=== PATIENT | female | born 1945 | race Caucasian/White ===

== ENCOUNTER 2020-04-08 00:40 | Day surgery (SDC) | payer MEDICARE, SELFPAY ==
[2020-04-01 09:27] VITALS: BMI 34.9
[2020-04-08 12:01] VITALS: BP 149/81; PULSE 72; RESP 16; TEMP 36.6; O2SAT 99
[2020-04-08] MEDS: LACTATED RINGERS 1,000 ML 150 ML IV CONT (12:11)
--- NOTE | 2020-04-08 12:48 | WPDANESEPPF ---
Anes - Initial Pre Proc Eval Procedure: Operation Date: 04/08/20 13:30 Proposed Procedures p Screening Colonoscopy - Gentry Stover DO Date/Time: 04/08/20 12:48 Surgeon: Gentry Stover DO Pre Op Diagnosis: Neoplasm Screening Patient Data Age: 74 Gender: F Height: 5 ft 1 in Weight: 83.6 kg Last Vital Signs Temp 97.9 F 04/08/20 12:01 Pulse 72 04/08/20 12:01 Resp 16 04/08/20 12:01 BP 149/81 H 04/08/20 12:01 Pulse Ox 99 04/08/20 12:01 Allergies Allergy/AdvReac Type Severity Reaction Status Date / Time codeine Allergy Severe DIFFICULTY Verified 04/08/20 11:59 BREATHING ciprofloxacin Allergy Intermediate Itching Verified 04/08/20 11:59 Home Medications Medication Instructions Recorded Confirmed Type amlodipine 5 mg PO DAILY 04/01/20 04/01/20 History aspirin [Adult Aspirin] 81 mg PO DAILY 04/01/20 04/01/20 History cholecalciferol (vitamin D3) 125 mcg PO DAILY 04/01/20 04/01/20 History [Vitamin D3] cyanocobalamin (vitamin B-12) 2,000 mcg PO DAILY 04/01/20 04/01/20 History [Vitamin B-12] losartan-hydrochlorothiazide 1 tablet PO DAILY 04/01/20 04/01/20 History Patient hx anesthesia problems: none Family hx anesthesia problems: none PMFSH Past Medical History Medical History (Updated 04/08/20 @ 12:47 by Joss Pino MD) GERD (gastroesophageal reflux disease) Hypertension RONDA (obstructive sleep apnea) cannot tolerate CPAP Social History Social History Smoking status: Former smoker Alcohol intake: current Drinks per week: 5 Alcohol use details: WINE Substance use: never Substance use type: does not use Living arrangements: with family Spiritual care concerns: No Anes - Eval Final PreProcedure Day of Procedure 04/08/20 12:48 Patient weight: obese Heart: regular rate and rhythm Lungs: clear to auscultation Airway: Mallampati scale class II Neurological: alert and oriented Last oral intake: >/= 8 hours ASA classification: III Emergent: no Anesthetic plan: proceed Anesthesia type and monitoring: general GIVS and standard monitoring Informed Consent: The patient's anesthetic plan and its attendant risks and benefits were discussed with the patient/family/POA. Questions were solicited and answers provided to the satisfaction of the patient/family/POA.
--- NOTE | 2020-04-08 13:38 | P.HP_ITS ---
H&P: [facility] History of Present Illness Date/Time: 04/08/20 13:38 Chief complaint: Neoplasm Screening Narrative: Reason for visit colonoscopy. This very pleasant lady is being evaluated the request of the primary physician. Impression: Screening and surveillance colonoscopy. Patient's history adenomatous colon polyps. GERD well controlled on medication. HTN. RONDA. Obesity. Recommendation: Colonoscopy. History: This very pleasant lady's here for screening and surveillance colonoscopy. She has a history adenomatous colon polyps. She has history of reflux disease with well controlled on medication. A GI review systems is negative. Physical examination: General: very pleasant patient in no acute distress. HEENT: Head was normocephalic sclerae is clear mouth without masses neck was supple. Heart: Rate rhythm regular without S3 or S4. Lungs: CTA. Abdomen: Soft with no guarding or rigidity. Bowel sounds were active. Neurologic: Cranial nerves 2 through 12 intact. No focal defects. No clonus. Musculoskeletal system: Revealed no joint tenderness or swelling no muscle atrophy. Extremities: Reveal no significant edema. Skin: Warm and dry with normal turgor. Mental status: intact. Patient is alert and oriented. Review of Systems Review of Systems: All systems reviewed & are unremarkable except as noted in HPI and below PMFSH Past Medical History Medical History (Updated 04/08/20 @ 13:38 by Gentry Stover DO) Adenomatous colon polyp GERD (gastroesophageal reflux disease) Hypertension Obesity RONDA (obstructive sleep apnea) cannot tolerate CPAP Surgical History Surgical History (Updated 04/08/20 @ 13:38 by Gentry Stover DO) H/O colonoscopy H/O unilateral oophorectomy History of esophagogastroduodenoscopy (EGD) Hx laparoscopic cholecystectomy Social History Social History Smoking status: Former smoker Alcohol intake: current Drinks per week: 5 Alcohol use details: WINE Substance use: never Substance use type: does not use Living arrangements: with family Spiritual care concerns: No Meds Home Medications and Allergies Home Medications Medication Instructions Recorded Confirmed Type amlodipine 5 mg PO DAILY 04/01/20 04/01/20 History aspirin [Adult Aspirin] 81 mg PO DAILY 04/01/20 04/01/20 History cholecalciferol (vitamin D3) 125 mcg PO DAILY 04/01/20 04/01/20 History [Vitamin D3] cyanocobalamin (vitamin B-12) 2,000 mcg PO DAILY 04/01/20 04/01/20 History [Vitamin B-12] losartan-hydrochlorothiazide 1 tablet PO DAILY 04/01/20 04/01/20 History Allergies Allergy/AdvReac Type Severity Reaction Status Date / Time codeine Allergy Severe DIFFICULTY Verified 04/08/20 11:59 BREATHING ciprofloxacin Allergy Intermediate Itching Verified 04/08/20 11:59 Vital Signs Vital Signs - 24 hr 04/08/20 12:01 Temperature 36.6 C Pulse Rate 72 Respiratory Rate 16 Blood Pressure 149/81 H Pulse Oximetry 99
[2020-04-08 14:14] VITALS: BP 116/59; PULSE 72; RESP 21; O2SAT 97
[2020-04-08 14:24] VITALS: BP 140/72; PULSE 62; RESP 19; O2SAT 100
[2020-04-08 14:34] VITALS: BP 145/58; PULSE 62; RESP 22; O2SAT 99
== END 2020-04-08 14:47 | disposition home or self-care (01) ==
PROVIDERS: PCP Internal Medicine; Visit Provider Internal Medicine Gastroenterology
PROC: 0DJD8ZZ Inspection of Lower Intestinal Tract, Via Natural or Artificial Opening Endoscopic (ICD-10-PCS; CPT 45378; principal; 2020-04-08 13:30)
DX: Z12.11 Encounter for screening for malignant neoplasm of colon (principal); D12.4 Benign neoplasm of descending colon; D12.3 Benign neoplasm of transverse colon; D12.2 Benign neoplasm of ascending colon; D12.8 Benign neoplasm of rectum; K63.5 Polyp of colon; K62.1 Rectal polyp; K21.9 Gastro-esophageal reflux disease without esophagitis; I10 Essential (primary) hypertension; G47.33 Obstructive sleep apnea (adult) (pediatric); E66.9 Obesity, unspecified; Z90.49 Acquired absence of other specified parts of digestive tract; Z90.721 Acquired absence of ovaries, unilateral; Z87.891 Personal history of nicotine dependence
CPT/HCPCS: 45385; 45380; 88305; J2001; J2704; J7120

== ENCOUNTER → 2020-04-16 17:51 | Outpatient (CLI) | payer MEDICARE, SELFPAY ==
--- NOTE | ~2020-04-16 | MM_ITS ---
EXAMINATION: MM screening [facility] BI w meenakshi HISTORY: Screening TECHNIQUE: Craniocaudal and mediolateral oblique 3-D tomosynthesis images were obtained and synthetic 2-D images were generated. CAD analysis was submitted and interpreted. COMPARISON: Comparison to multiple prior studies sequentially, with oldest reviewed study dated 02/08. BREAST PARENCHYMAL COMPOSITION: There are scattered areas of fibroglandular density. FINDINGS: There is no evidence of suspicious mass, calcification, or architectural distortion to sugg est malignancy in either breast. There has been no suspicious interval change. IMPRESSION: 1. No mammographic evidence of malignancy. 2. Recommend routine screening mammography in one year. BI-RADS Category 1: Negative Reviewed, dictated and finalized at location A. LEX OPERATOR
--- NOTE | ~2020-04-16 | DEXA_ITS ---
Bone Density Report Name: Tequila Kelly Age: 74 Sex: Female Ethnicity: White Date of : 1945 Indication: postmenopausal; screening for osteoporosis; height loss; Referring Provider: MAURICE, MELLISSA Vizcarra Study: Bone densitometry was performed. Exam Date: April 16, 2020 Accession number: [id number] Bone Density: Region BMD T-score Z-score Classification AP Spine (L1-L4) 0.830 -2.0 0.3 Osteopenia Femoral Neck (Left) 0.650 -1.8 0.1 Osteopenia Total Hip (Left) 0.860 -0.7 1.0 Normal Femoral Neck (Right) 0.692 -1.4 0.5 Osteopenia Total Hip (Right) 0.883 -0.5 1.2 Normal Total Hip Mean 0.872 -0.6 1.1 Normal World Health Organization criteria for BMD impression classify patients as: Normal (T-score at or above -1.0), Osteopenia (T-score between -1.0 and -2.5), or Osteoporosis (T-score at or below -2.5). 10-year Fracture Risk(1): Major Osteoporotic Fracture 10% Hip Fracture 1.9% Reported Risk Factors: [place] (), Neck BMD=0.650, BMI=34.5 (1) FRAX(R) Version 3.08. Fracture probability calculated for an untreated patient. Fracture probability may be lower if the patient has received treatment. Clinical Information Provided by Patient: Has used the following medications: Vitamin D Patient maximum height was 62.0 Menopause Age: 44 No regular weight bearing exercise Does not regularly consume dairy products Drinks caffeinated beverages Onset of menses at age 15 Number of children 3 Impression: The patient has low bone mass, based on the Total Spine T-score. The patient has an estimated ten-year risk of hip fracture of 1.9% and an estimated ten-year risk of major fracture of 10%, based on the WHO FRAX algorithm. Discussion: BONE DENSITY IS LOW AT ONE OR MORE SKELETAL SITES. This patient's lowest T-score is low at one or more skeletal sites. It meets the World Health Organization's (WHO) criteria for ?low bone mass? (T-score between -1.0 and -2.5). The patient's 10-year risk of fracture as calculated by FRAX is less than the threshold where pharmacological therapy is recommended by the National Osteoporosis Foundation (NOF). However, all treatment decisions require clinical judgment and consideration of individual patient factors, including patient preferences, comorbidities, previous drug use, risk factors not captured in the FRAX model (e.g., frailty, falls, vitamin D deficiency, increased bone turnover, interval significant decline in bone density) and possible under or overestimation of fracture risk by FRAX. The patient should follow a healthful lifestyle (good nutrition with adequate calcium and vitamin D, and appropriate weight-bearing exercise). Follow-Up: Consider repeating this study in 2 to 3 years to reassess this patient's status, or sooner if there is some new clinical
== END ==
PROVIDERS: PCP Internal Medicine; Visit Provider Internal Medicine
DX: Z12.31 Encounter for screening mammogram for malignant neoplasm of breast (principal); Z13.820 Encounter for screening for osteoporosis; Z78.0 Asymptomatic menopausal state; M85.852 Other specified disorders of bone density and structure, left thigh; M85.851 Other specified disorders of bone density and structure, right thigh
CPT/HCPCS: 77063; 77067; 77080

== ENCOUNTER → 2021-05-14 13:22 | Outpatient (CLI) | payer MEDICARE, SELFPAY ==
--- NOTE | ~2021-05-14 | MM_ITS ---
EXAMINATION: MM screening [facility] BI w meenakshi HISTORY: Screening mammogram TECHNIQUE: Craniocaudal and mediolateral oblique 3-D tomosynthesis images were obtained and synthetic 2-D images were generated. CAD analysis was submitted and interpreted. COMPARISON: 04/16/2020, 03/27/2019, 03/21/2018 BREAST PARENCHYMAL COMPOSITION: There are scattered areas of fibroglandular density. FINDINGS: There is no evidence of suspicious mass, calcification, or architectural distortion to sugg est malignancy in either breast. There has been no suspicious interval change. IMPRESSION: 1. No mammographic evidence of malignancy. 2. Recommend routine screening mammography in one year. BI-RADS Category 1: Negative Reviewed, dictated and finalized at location A. ON MACHINE OPERATOR
== END ==
PROVIDERS: PCP Internal Medicine; Visit Provider Internal Medicine
DX: Z12.31 Encounter for screening mammogram for malignant neoplasm of breast (principal)
CPT/HCPCS: 77063; 77067

== ENCOUNTER 2021-07-12 16:58 | Emergency (ER) | payer MEDICARE, SELFPAY ==
--- NOTE | ~2021-07-12 | XR_ITS ---
EXAMINATION: XR chest 2V 07/12/2021 17:34 INDICATION: Hypertension. Heart murmur. Weakness. PROCEDURE: 2 view chest COMPARISON: No prior studies for comparison. FINDINGS: The lungs are clear. The cardiomediastinal silhouette is within normal limits. There are no pleural effusions. There is no pneumothorax suspected. There is a large hiatal hernia. IMPRESSION: 1: NO ACUTE CARDIOPULMONARY DISEASE. Reviewed, dictated and finalized at location A. NDS MAINTENANCE WORKER
--- NOTE | ~2021-07-12 | XR_ITS ---
XR shoulder LT min 2V 07/12/2021 17:34 Indication: Left shoulder pain. No injury. Procedure: 4 views left shoulder Comparison: No prior studies for comparison. Findings: There is glenohumeral joint osteoarthritis. No fracture, subluxation or dislocation. Visual ized lung parenchyma and surrounding soft tissues are unremarkable. Impression: 1: Left glenohumeral joint osteoarthritis. Reviewed, dictated and finalized at location A. R AND SANDER Impression: 1: Left glenohumeral joint osteoarthritis.
[2021-07-12 17:03] VITALS: BP 176/93; PULSE 106; RESP 20; TEMP 36.9; O2SAT 98
--- NOTE | 2021-07-12 17:09 | ECG_ITS ---
Measurements Intervals [place] Rate: 102 P: 16 SC: 163 QRS: 6 QRSD: 94 T: 33 QT: 337 QTc: 439 Interpretive Statements SINUS TACHYCARDIA MINIMAL VOLTAGE CRITERIA FOR LVH, CONSIDER NORMAL VARIANT [MEETS CRITERIA IN ONE OF: R(aVL), S(V1), R(V5), R(V5/V6)+S(V1)] WANDERING BASELINE ARTIFACT V4 THROUGH V6 NONSPECIFIC ST & T-WAVE ABNORMALITY ABNORMAL ECG NO PREVIOUS ECG AVAILABLE FOR COMPARISON Electronically Signed On 07-13-2021 10:58:50 CORRUGATED BOX MACHINE OPERATOR by Geovanni Schmid M.D.
[2021-07-12 17:22] LABS: Basophils Percent Auto 0.1 % (0.2-1.2); Eosinophils Absolute Auto 0.1 K/mm3 (0-0.3); Eosinophils Percent Auto 0.7 % (0-4.4); Hematocrit 41.8 % (37.0-47.0); Hemoglobin 13.3 g/dL (12.0-15.0); Immature Granulocyte Absolute 0.04 K/mm3 (0.00-0.031); Immature Granulocyte Percent A 0.4 % (0-0.5); Lymphocytes Absolute Auto 2.39 K/mm3 (0.9-3.2); Lymphocytes Percent Auto 23.4 % (18.3-44.2); Mean Corpuscular HGB Conc 31.8 g/dl (32-36); Mean Corpuscular Hemoglobin 29.6 pg (26-34); Mean Corpuscular Volume 93.1 fl (80-100); Mean Platelet Volume 9.8 fl (7.4-10.4); Monocytes Absolute Auto 0.7 K/mm3 (0.1-0.6); Monocytes Percent Auto 7.2 % (2.6-8.5); Neutrophils Percent Auto 68.2 % (45.5-73.1); Platelet Count Result 285 k/mm3 (150-375); Red Blood Count 4.49 M/mm3 (4.2-5.4); Red Cell Distribution Width 13.6 % (11.5-14.5); White Blood Count 10.2 K/mm3 (4.5-10.0)
--- NOTE | 2021-07-12 17:24 | ED_ITS ---
07/12/21 17:14 07/12/21 17:15 Labs: Lab Results 07/12/21 07/12/21 07/12/21 Range/Units 17:14 17:15 17:15 WBC 10.2 H (4.5-10.0) K/mm3 RBC 4.49 (4.2-5.4) M/mm3 Hgb 13.3 (12.0-15.0) g/dL Hct 41.8 (37.0-47.0) % MCV 93.1 (80-100) fl MCH 29.6 (26-34) pg MCHC 31.8 L (32-36) g/dl RDW 13.6 (11.5-14.5) % Plt Count 285 (150-375) k/mm3 MPV 9.8 (7.4-10.4) fl Immature Gran % (Auto) 0.4 (0-0.5) % Neut % (Auto) 68.2 (45.5-73.1) % Lymph % (Auto) 23.4 (18.3-44.2) % [place] % (Auto) 7.2 (2.6-8.5) % Eos % (Auto) 0.7 (0-4.4) % Baso % (Auto) 0.1 L (0.2-1.2) % Lymph # (Auto) 2.39 (0.9-3.2) K/mm3 [place] # (Auto) 0.7 H (0.1-0.6) K/mm3 Eos # (Auto) 0.1 (0-0.3) K/mm3 Baso # (Auto) 0.0 (0.0-0.1) K/mm3 Abs Immat Gran (auto) 0.04 H (0.00-0.031) K/mm3 Absolute Neuts (auto) 7.0 H (1.3-6.7) K/mm3 Absolute Nucleated RBC 0.0 (0.0-0.012) K/mm3 Nucleated RBC % 0.0 (0.0-0.2) % PT 13.1 (11.1-14.7) Seconds INR 1.0 APTT 26.5 (22.3-36.8) SECONDS D-Dimer 0.64 H (<0.48) ug/mL Sodium 139 (137-145) mmol/L Potassium 3.5 (3.4-5.0) mmol/L Chloride 102 (98-107) mmol/L Carbon Dioxide 27 (22-30) mmol/L Anion Gap 10 (8-16) mmol/L BUN 13 (7-17) mg/dL Creatinine 0.60 L (0.7-1.0) mg/dL Estim Creat Clear Calc 74 ml/min Estimated GFR > 60 (59 - ) Glucose 148 H (65-110) mg/dL Calcium 9.6 (8.4-10.2) mg/dL Total Bilirubin 0.5 (0.2-1.3) mg/dL AST 24 (14-36) U/L ALT 18 (4-35) U/L Alkaline Phosphatase 92 (38-126) U/L Troponin I (0.000-0.034) ng/mL Total Protein 7.0 (6.3-8.2) g/dL Albumin 4.4 (3.5-5.1) g/dL Lipase 45 (23-300) U/L Urine Color (Yellow) Urine Appearance (Clear) Urine pH (5.0-9.0) Ur Specific Model (1.001-1.035) Urine Protein (Negative) mg/dL Urine Glucose (UA) (Negative) mg/dL Urine Ketones (Negative) mg/dL Ur Blood (Man) (Negative) Urine Nitrate (Negative) Urine Bilirubin (Negative) Urine Urobilinogen (<2.0) mg/dL Leukocyte Esterase Rfl (Negative) RODNEY/UL Urine RBC (0-2) /hpf Urine WBC /hpf Ur Squamous Epith Cells (Few) /hpf Urine Bacteria /hpf Urine Mucus /lpf 07/12/21 07/12/21 Range/Units 17:15 18:23 WBC (4.5-10.0) K/mm3 RBC (4.2-5.4) M/mm3 Hgb (12.0-15.0) g/dL Hct (37.0-47.0) % MCV (80-100) fl MCH (26-34) pg MCHC (32-36) g/dl RDW (11.5-14.5) % Plt Count (150-375) k/mm3 MPV (7.4-10.4) fl Immature Gran % (Auto) (0-0.5) % Neut % (Auto) (45.5-73.1) % Lymph % (Auto) (18.3-44.2) % [place] % (Auto) (2.6-8.5) % Eos % (Auto) (0-4.4) % Baso % (Auto) (0.2-1.2) % Lymph # (Auto) (0.9-3.2) K/mm3
--- NOTE | 2021-07-12 17:24 | ED.EXTPRO ---
HPI - Extremity Problem General Chief complaint: Extremity Problem,Nontraumatic Stated complaint: L shoulder pain, abnormal ekg Time Seen by Provider: 07/12/21 17:01 Source: patient History of Present Illness HPI Narrative: Patient was referred from urgent care for arm pain. Reports she has had arm pain for the past couple days it is primarily in her shoulder is worse with moving her shoulder. Pain is achy, constant, radiates down the arm. She denies any trauma or injury to the area. Reports the urgent care did an EKG that was abnormal and she was referred to the ER for further evaluation. She denies any chest pain or shortness of breath she denies any nausea vomiting or diaphoresis. Denies any lightheadedness or dizziness Related Data Home Medications Medication Instructions Recorded Confirmed amlodipine 5 mg PO DAILY 04/01/20 04/01/20 aspirin [Adult Aspirin] 81 mg PO DAILY 04/01/20 04/01/20 cholecalciferol (vitamin D3) 125 mcg PO DAILY 04/01/20 04/01/20 [Vitamin D3] cyanocobalamin (vitamin B-12) 2,000 mcg PO DAILY 04/01/20 04/01/20 [Vitamin B-12] losartan-hydrochlorothiazide 1 tablet PO DAILY 04/01/20 04/01/20 Allergies Allergy/AdvReac Type Severity Reaction Status Date / Time codeine Allergy Severe DIFFICULTY Verified 07/12/21 17:11 BREATHING ciprofloxacin Allergy Intermediate Itching Verified 07/12/21 17:11 Review of Systems Review of Systems: CONSTITUTIONAL: Denies fever, chills, or sweats. EYES: Denies visual changes, redness, or discharge. ENT: Denies rhinorrhea, congestion, sore throat, or otalgia. CARDIOVASCULAR: Denies chest pain, palpitations, or edema. RESPIRATORY: Denies cough or dyspnea. GASTROINTESTINAL: Denies abdominal pain, nausea, vomiting, or diarrhea. GENITOURINARY: Denies dysuria or hematuria. SKIN: Denies rash or itching. MUSCULOSKELETAL: Denies back pain, or myalgia. NEUROLOGIC: Denies headache, numbness, dizziness, or weakness. PSYCHIATRIC: Denies anxiety or depression. All systems reviewed & are unremarkable except as noted in HPI and below PMFSH Past Medical History Medical History Adenomatous colon polyp Diverticula, colon GERD (gastroesophageal reflux disease) Hypertension Obesity RONDA (obstructive sleep apnea) cannot tolerate CPAP Surgical History Surgical History H/O colonoscopy H/O unilateral oophorectomy History of esophagogastroduodenoscopy (EGD) Hx laparoscopic cholecystectomy Social History Social History Smoking status: Former smoker Alcohol intake: current Drinks per week: 5 Alcohol use details: WINE Substance use: never Substance use type: does not use Spiritual care concerns: No Exam Narrative: GENERAL: Well-appearing, well-nourished, and in no acute distress. HEAD: Normocephalic, atraumatic. EYES: PERRLA and EOMI. ENT: Nares clear, no rhinorrhea or epistaxis. Mucous membranes moist. NECK: Supple. No masses. No JVD CHEST: Clear to auscultation. No respiratory distress. No wheezes rales or rhonchi HEART: Regular rate and rhythm. No murmur heard. Normal peripheral pulses. ABDOMEN: Soft, nontender, nondistended, normal active bowel sounds. EXTREMITIES: Limited range of motion to the left shoulder due to pain there is diffuse tenderness to the left shoulder is also tenderness to the left paraspinal area in the T-spine along the rhomboid muscles SKIN: Warm, dry, no rash. NEURO: No focal deficits. Alert and oriented x3. PSYCH: Normal mood and affect. Course Reevaluation(s) Reevaluation #1: Patient feels somewhat improved results thus far reviewed with patient. Patient is comfortable with trial of outpatient supportive therapies. Date: 07/12/21 Time: 18:28 Vital Signs Vital signs: Vital Signs Temperature 36.9 C 07/12/21 17:03 Pulse Rate 106 H 07/12/21 17:03 Re
[2021-07-12 17:30] LABS: Prothrombin Time 13.1 Seconds (11.1-14.7)
[2021-07-12 17:31] LABS: Partial Thromboplastin Time 26.5 SECONDS (22.3-36.8)
[2021-07-12] MEDS: KETOROLAC 15 MG/ML VIAL (*BKC) IV PUSH (17:33)
[2021-07-12 17:34] LABS: D Dimer 0.64 ug/mL (<0.48)
[2021-07-12 17:35] LABS: Alanine Aminotransferase 18 U/L (4-35); Albumin Level 4.4 g/dL (3.5-5.1); Alkaline Phosphatase 92 U/L (38-126); Anion Gap 10 mmol/L (8-16); Aspartate Amino Transferase 24 U/L (14-36); Bilirubin,Total 0.5 mg/dL (0.2-1.3); Blood Urea Nitrogen 13 mg/dL (7-17); Calcium 9.6 mg/dL (8.4-10.2); Carbon Dioxide 27 mmol/L (22-30); Chloride 102 mmol/L (98-107); Estimated CRCL calculation 74 ml/min; Estimated Glomerular Filt Rate > 60; Glucose 148 mg/dL (65-110); Lipase 45 U/L (23-300); Potassium 3.5 mmol/L (3.4-5.0); Sodium 139 mmol/L (137-145)
[2021-07-12 17:44] LABS: Troponin I < 0.012 ng/mL (0.000-0.034)
[2021-07-12 18:10] VITALS: BP 152/75; PULSE 84; RESP 18; O2SAT 99
[2021-07-12 18:34] VITALS: BP 147/68; PULSE 83; RESP 19; TEMP 37.1; O2SAT 99
[2021-07-12 18:36] LABS: Add Urine Microscopic? YES; Appearance Urine Cloudy (Clear); Bacteria Urine Trace /hpf; Bilirubin Urine Negative (Negative); Blood Urine Negative (Negative); Color Urine Yellow (Yellow); Glucose Urine UA Negative (Negative); Ketones Urine Trace mg/dL (Negative); Leukocyte Esterase Ur Trace LEU/UL (Negative); Mucus Urine Few /lpf; Nitrate Urine Negative (Negative); Protein Urine Negative (Negative); Specific Grav Ur 1.023 (1.001-1.035); Squamous Epithelial Cell Urine Many /hpf (Few)
[2021-07-12 19:40] VITALS: BP 141/65; PULSE 75; RESP 16; TEMP 37; O2SAT 99
== END 2021-07-12 19:43 | disposition home or self-care (01) ==
PROVIDERS: Emergency Provider Emergency Medicine; PCP Internal Medicine
DX: M25.512 Pain in left shoulder (principal); I10 Essential (primary) hypertension; G47.33 Obstructive sleep apnea (adult) (pediatric); K21.9 Gastro-esophageal reflux disease without esophagitis; E66.9 Obesity, unspecified; Z68.39 Body mass index [BMI] 39.0-39.9, adult; Z87.891 Personal history of nicotine dependence; Z86.010 Personal history of colon polyps; Z79.82 Long term (current) use of aspirin; M19.012 Primary osteoarthritis, left shoulder; R00.0 Tachycardia, unspecified; R94.31 Abnormal electrocardiogram [ECG] [EKG]
CPT/HCPCS: 36415; 71046; 73030; 80053; 81001; 83690; 84484; 85025; 85380; 85610; 85730; 87077; 87086; 87088; 93005; 96374; 99284; J1885

== ENCOUNTER 2022-02-16 09:32 | Emergency (ER) | payer MEDICARE, SELFPAY ==
[2022-02-16 09:40] VITALS: BP 154/70; PULSE 89; RESP 20; TEMP 36.3; O2SAT 100
[2022-02-16] MEDS: diphenhydrAMINE HCl CAP 25 MG CAPSULE 50 MG PO (10:23)
[2022-02-16] MEDS: FAMOTIDINE 20 MG TABLET PO (10:23)
[2022-02-16] MEDS: methylPREDNISolone SOD SUCC 125 MG VIAL IM (10:23)
--- NOTE | 2022-02-16 10:33 | ED.ALLEREA ---
HPI - Allergic Reaction General Chief complaint: Allergic Reaction Stated complaint: RASH AFTER STARTING FUROSEMIDE Time Seen by Provider: 02/16/22 09:58 Source: patient Mode of arrival: ambulatory Limitations: no limitations History of Present Illness HPI narrative: Patient is a 76 y/o female who presents to the ED with c/o urticaria. Patient reports she started Lasix on Wednesday and Wednesday due to recent swelling/dependent edema in her left lower extremity. The swelling has improved. Patient then woke up Wednesday morning with an itchy rash/hives to her neck, left upper back, arms, abdomen. Denies any pain, but does report pruritus. She took Benadryl yesterday. Did not take the Lasix yesterday. States hives became worse today which prompted her presentation. She has not contacted her PCP. She does feel like her face looks somewhat swollen, but denies swelling of tongue, lip, throat, hoarseness, chest pain, SOB, abdominal pain, nausea, vomiting. Related Data Home Medications Medication Instructions Recorded Confirmed amlodipine 5 mg tablet 5 mg PO DAILY 04/01/20 04/01/20 aspirin 81 mg chewable tablet 81 mg PO DAILY 04/01/20 04/01/20 cholecalciferol (vitamin D3) 125 125 mcg PO DAILY 04/01/20 04/01/20 mcg (5,000 unit) tablet (Vitamin D3) cyanocobalamin (vitamin B-12) 2,000 mcg PO DAILY 04/01/20 04/01/20 2,000 mcg tablet,extended release (Vitamin B-12 ER) losartan 100 1 tablet PO DAILY 04/01/20 04/01/20 mg-hydrochlorothiazide 12.5 mg tablet Allergies Allergy/AdvReac Type Severity Reaction Status Date / Time codeine Allergy Severe DIFFICULTY Verified 07/12/21 17:11 BREATHING ciprofloxacin Allergy Intermediate Itching Verified 07/12/21 17:11 Review of Systems Review of Systems: CONSTITUTIONAL: Denies fever, chills, or sweats. ENT: Reports swelling of face. Denies hoarseness, swelling of tongue/throat/lips, rhinorrhea, congestion, sore throat, or otalgia. CARDIOVASCULAR: Denies chest pain. RESPIRATORY: Denies cough, SOB. GASTROINTESTINAL: Denies abdominal pain, nausea, vomiting, or diarrhea. SKIN: Reports rash and itching. All systems reviewed & are unremarkable except as noted in HPI and below PMFSH Past Medical History Medical History Adenomatous colon polyp Diverticula, colon GERD (gastroesophageal reflux disease) Hypertension Obesity RONDA (obstructive sleep apnea) cannot tolerate CPAP Surgical History Surgical History H/O colonoscopy H/O unilateral oophorectomy History of esophagogastroduodenoscopy (EGD) Hx laparoscopic cholecystectomy Social History Social History Smoking status: Former smoker Alcohol intake: current Drinks per week: 5 Alcohol use details: WINE Substance use: never Substance use type: does not use Spiritual care concerns: No Exam Narrative: GENERAL: Well appearing, obese, non-toxic, in no acute distress. HEAD: Normocephalic, atraumatic. EYES: PERRL/EOMI, conjunctivae clear bilaterally. No periorbital swelling/redness. NOSE: Normal, no drainage. THROAT: Pharynx clear, no exudate. MMs moist. No swelling of tongue/lips/palate. No stridor. No hoarseness. NECK: Supple. No adenopathy, no masses. RESPIRATORY: Airway patent, respirations nonlabored. No distress. Clear to auscultation bilaterally, no rales, rhonchi, wheezing. CARDIOVASCULAR: Regular rate and rhythm without murmurs, rubs, or gallops. Peripheral pulses 2+ and equal bilaterally. ABDOMINAL: Soft, nontender, nondistended, no hepatosplenomegaly. Normoactive BS. MUSCULOSKELETAL: Moves all extremities. Strength/ROM intact without gross deformities or TTP. No edema of BLE. SKIN: Warm, dry. Localized raised erythematous circular lesions to L upper back, bilateral anterior neck, bilateral inner arms, L sided abdomen. No lesions to
[2022-02-16 11:47] LABS: Basophils Percent Auto 0.2 % (0.2-1.2); Eosinophils Absolute Auto 0.1 K/mm3 (0-0.3); Eosinophils Percent Auto 1.3 % (0-4.4); Hematocrit 43.5 % (37.0-47.0); Immature Granulocyte Absolute 0.03 K/mm3 (0.00-0.031); Immature Granulocyte Percent A 0.3 % (0-0.5); Lymphocytes Absolute Auto 1.76 K/mm3 (0.9-3.2); Lymphocytes Percent Auto 20.1 % (18.3-44.2); Mean Corpuscular HGB Conc 32.2 g/dl (32-36); Mean Corpuscular Volume 90.2 fl (80-100); Mean Platelet Volume 9.8 fl (7.4-10.4); Monocytes Absolute Auto 0.8 K/mm3 (0.1-0.6); Monocytes Percent Auto 8.8 % (2.6-8.5); Neutrophils Absolute Auto 6.1 K/mm3 (1.3-6.7); Neutrophils Percent Auto 69.3 % (45.5-73.1); Platelet Count Result 289 k/mm3 (150-375); Red Blood Count 4.82 M/mm3 (4.2-5.4); White Blood Count 8.8 K/mm3 (4.5-10.0)
[2022-02-16 11:58] LABS: Alanine Aminotransferase 21 U/L (6-35); Albumin Level 4.4 g/dL (3.5-5.1); Alkaline Phosphatase 119 U/L (38-126); Anion Gap 10 mmol/L (8-16); Aspartate Amino Transferase 22 U/L (14-36); Bilirubin,Total 0.5 mg/dL (0.2-1.3); Blood Urea Nitrogen 10 mg/dL (7-17); Calcium 9.2 mg/dL (8.4-10.2); Carbon Dioxide 31 mmol/L (22-30); Chloride 98 mmol/L (98-107); Estimated CRCL calculation 61 ml/min; Estimated Glomerular Filt Rate > 60; Glucose 105 mg/dL (65-110); Potassium 3.3 mmol/L (3.4-5.0); Sodium 139 mmol/L (137-145)
[2022-02-16] MEDS: POTASSIUM CHLORIDE 20 MEQ TABLET 40 MEQ PO (12:29)
== END 2022-02-16 12:37 | disposition home or self-care (01) ==
PROVIDERS: Physician Assistant; Emergency Provider Emergency Medicine; PCP Internal Medicine
DX: L50.0 Allergic urticaria (principal); T50.1X5A Adverse effect of loop [high-ceiling] diuretics, initial encounter; I10 Essential (primary) hypertension; G47.33 Obstructive sleep apnea (adult) (pediatric); K21.9 Gastro-esophageal reflux disease without esophagitis; E66.9 Obesity, unspecified; Z68.36 Body mass index [BMI] 36.0-36.9, adult; Z79.82 Long term (current) use of aspirin
CPT/HCPCS: 36415; 80053; 85025; 96372; 99283; A9270; J2930

== ENCOUNTER → 2022-06-29 09:50 | Outpatient (CLI) | payer MEDICARE, SELFPAY ==
--- NOTE | ~2022-06-29 | DEXA_ITS ---
Bone Density Report Name: JORGE MARSHALL Age: 76 Sex: Female Ethnicity: White Date of : 1945 Indication: osteopenia; height loss; prior fracture; postmenopausal Referring Provider: MAURICE, MELLISSA Vizcarra Study: Bone densitometry was performed. Exam Date: June 29, 2022 Accession number: [id number] Bone Density: Region BMD T-score Z-score Classification AP Spine (L1-L4) 0.882 -1.5 0.9 Osteopenia Femoral Neck (Left) 0.656 -1.7 0.3 Osteopenia Total Hip (Left) 0.841 -0.8 0.9 Normal Femoral Neck (Right) 0.671 -1.6 0.5 Osteopenia Total Hip (Right) 0.868 -0.6 1.1 Normal Total Hip Mean 0.855 -0.7 1.0 Normal World Health Organization criteria for BMD impression classify patients as: Normal (T-score at or above -1.0), Osteopenia (T-score between -1.0 and -2.5), or Osteoporosis (T-score at or below -2.5). 10-year Fracture Risk(1): Major Osteoporotic Fracture 16% Hip Fracture 3.1% Reported Risk Factors: [place] (), Neck BMD=0.656, BMI=37.5, previous fracture (1) FRAX(R) Version 3.08. Fracture probability calculated for an untreated patient. Fracture probability may be lower if the patient has received treatment. Previous Exams: Region Exam Age BMD T-score BMD Change BMD Change Date g/cm2 vs Baseline vs Previous AP Spine(L1-L4) 06/29/2022 76 0.882 -1.5 0.051* 0.051* 04/16/2020 74 0.830 -2.0 Total Hip(Left) 06/29/2022 76 0.841 -0.8 -0.019 -0.019 04/16/2020 74 0.860 -0.7 Total Hip(Right) 06/29/2022 76 0.868 -0.6 -0.016 -0.016 04/16/2020 74 0.883 -0.5 *Denotes significance at 95% confidence level, LSC for AP Spine = 0.022 g/cm2, LSC for Total Hip = 0.027 g/cm2 Clinical Information Provided by Patient: Has had a low trauma fracture Has used the following medications: Vitamin D Patient maximum height was 62.0 Menopause Age: 44 No regular weight bearing exercise Does not regularly consume dairy products Drinks caffeinated beverages Onset of menses at age 15 Number of children 3 Impression: The patient has low bone mass, based on the Left Femoral Neck T-score. The patient has an estimated ten-year risk of hip fracture of 3.1% and an estimated ten-year risk of major fracture of 16%, based on the WHO FRAX algorithm. The patient has risk factors, including: previous fracture. No significant bone loss was observed. Discussion: BONE DENSITY IS LOW AT ONE OR MOR
--- NOTE | ~2022-06-29 | MM_ITS ---
EXAMINATION: MM screening ian BI w meenakshi HISTORY: Screening mammogram TECHNIQUE: Craniocaudal and mediolateral oblique 3-D tomosynthesis images were obtained and synthetic 2-D images were generated. CAD analysis was submitted and interpreted. COMPARISON: 05/14/2021, 04/16/2020, 03/27/2019 bilateral screening mammogram examinations BREAST PARENCHYMAL COMPOSITION: There are scattered areas of fibroglandular density. FINDINGS: There is no evidence of suspicious mass, calcification, or architectural distortion to sugg est malignancy in either breast. There has been no suspicious interval change. IMPRESSION: 1. No mammographic evidence of malignancy. 2. Recommend routine screening mammography in one year. BI-RADS Category 1: Negative Reviewed, dictated and finalized at location A. ENING TECHNICIAN
== END ==
PROVIDERS: PCP Internal Medicine; Visit Provider Internal Medicine
DX: Z12.31 Encounter for screening mammogram for malignant neoplasm of breast (principal); Z78.0 Asymptomatic menopausal state; M85.89 Other specified disorders of bone density and structure, multiple sites
CPT/HCPCS: 77063; 77067; 77080

== ENCOUNTER 2023-12-18 10:30 | Outpatient (CLI) | payer MEDICARE, SELFPAY ==
--- NOTE | ~2023-12-18 | MM_ITS ---
EXAMINATION: MM screening ian BI w meenakshi HISTORY: Screening TECHNIQUE: Craniocaudal and mediolateral oblique 3-D tomosynthesis images were obtained and synthetic 2-D images were generated. CAD analysis was submitted and interpreted. COMPARISON: Comparison to multiple prior studies sequentially, with oldest reviewed study dated 02/07. BREAST PARENCHYMAL COMPOSITION: Not dense: There are scattered areas of fibroglandular density. FINDINGS: There is no evidence of suspicious mass, calcification, or architectural distortion to sugg est malignancy in either breast. There has been no suspicious interval change. IMPRESSION: 1. No mammographic evidence of malignancy. 2. Recommend routine screening mammography in one year. BI-RADS Category 1: Negative Reviewed, dictated and finalized at location B.
== END 2023-12-18 10:31 ==
PROVIDERS: PCP Internal Medicine; Visit Provider Internal Medicine
DX: Z12.31 Encounter for screening mammogram for malignant neoplasm of breast (principal)
CPT/HCPCS: 77063; 77067

== ENCOUNTER 2024-09-22 07:42 | Outpatient (CLI) | payer MEDICARE, SELFPAY ==
--- NOTE | ~2024-09-22 | CT_ITS ---
CT of the Abdomen: Indication: Abdominal pain Technique: 2.5 mm axial scans were obtained through the abdomen following intravenous administration of 100 cc of Omnipaque 350. Dose reduction technique was used on this scan by utilizing automated ex posure control and iterative reconstruction technique. The dose-length product (DLP) was 585.26 mGy-c m. Findings: Scans through the lung bases demonstrate 4 mm right middle lobe nodule. Large hiatal herni a present. The liver, spleen, pancreas, adrenals and kidneys are within normal limits. Cholecystectomy clips are present. There are atherosclerotic calcifications of the aorta. No lymphadenopathy. Visualized bowel loops are unremarkable. No ascites. There is minimal haziness in the central mesente ry. Impression: Large hiatal hernia. 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 4 mm right middle lobe nodule. Consider one-year follow-up exam for a high-risk patient. Reviewed, dictated and finalized at [facility]. Impression: Large hiatal hernia. 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 4 mm right middle lobe nodule. Consider one-year follow-up exam for a high-risk patient.
--- OUTSIDE RECORDS SUMMARY | 2024-09-22 07:46 | XMS_ITS | Clinical Summary ---
Author Organization [facility] Address [address] [place] [address] [address] [place] [address] Phone Care Team Providers Care Complex Case Manager Name Role Phone Gentry Stover Gio DO Unavailable [phone] Kelvin Velasquez MD Primary Care Provider [phone] Allergies Active Allergy Reactions Criticality Noted Date Comments Ciprofloxacin Unknown 07/15/2021 Codeine Shortness of Breath 03/27/2015 Medications amLODIPine (NORVASC) 5 MG Tablet every morning. 1 02/19/2015 Active DULoxetine (CYMBALTA) [address] Particles 0 03/06/2015 Active losartan-hydroch lorothiazide (HYZAAR) 100-12.5 MG Tablet every morning. 1 02/19/2015 Active Cholecalciferol (VITAMIN D PO) Take by mouth daily. Active FOLIC ACID PO Take by mouth daily. Active aspirin EC 81 MG Tablet Delayed Response Take 81 mg by mouth daily. Active Cyanocobalamin (VITAMIN B-12 PO) Take by mouth daily. Active celecoxib (CeleBREX) 100 MG Capsule Take 100 mg by mouth 2 times daily. Active Active Problems No known active problems Immunizations Immunization Administration Dates Next Due Covid-19, Mrna, Lnp-s, Pf, 30 Mcg/0.3 Ml Dose (P fizer) 07/12/2020,06/21/2020 Family History Medical History Relation Name Comments Cancer Father Lung Cancer Father Chronic Obstructive Pulmonary Disease Mother Heart Attack Mother Heart Disease Mother Hypertension Mother Relation Name Status Comments Father Mother Alive Social History Tobacco Use Types Packs/Day Years Used Date Smoking Tobacco: Former Cigarettes 1990 Smokeless Tobacco: Never Comments:3 cigs/day Alcohol Use Standard Drinks/Week Comments Yes 0 (1 standard drink = 0.6 oz pur e alcohol) Socially Comments No Sex and Gender Information Value Date Recorded Sex Assigned at Not on file Legal Sex Female 7:18 PM CDT Gender Identity Not on file Sexual Orientation Not on file Last Filed Vital Signs Vital Sign Reading Time Taken Comments Blood Pressure 158/72 07/28/2021 2:41 PM CDT Pulse 71 07/28/2021 2:41 PM CDT Temperature 36 C (96.8 F) 07/28/2021 2:41 PM CDT Respiratory Rate 20 07/28/2021 2:41 PM CDT Oxygen Saturation 100% 07/28/2021 2:41 PM CDT Inhaled Oxygen Concentration - - Weight 86.2 kg (190 lb) 07/28/2021 11:54 AM CDT Height 154.9 cm (5' 1 ) 07/28/2021 11:54 AM CDT Body Mass Index 35.9 07/28/2021 11:54 AM CDT Plan of Treatment Health Maintenance Due Date Last Done Comments Hepatitis C Virus (HCV) Screening 1945 TdaP Immunization 1945 Zoster Immunization (1 of 2) 11/28/1997 Respiratory Syncytial Virus (RSV) Immunization (Adult) (1 - 1-dose 75+ series) 11/28/2022 Influenza Immunization (#1) 01/09/202402/08, 02/14/2020, 03/13/2019, Additional history exists SARS-COV-2 Immunization ( season) 2024 03/05/2021, 07/19/2020, 07/12/2020, Additional history exists Pneumococcal Immunization (50+ years) Completed 08/11/2018, 03/08/2017 Pneumococcal Immunization Combined Discontinued 08/11/2018, 03/08/2017 Colonoscopy High Risk Discontinued 07/28/2021 , 04/08/2020, 02/14/2015 Colonoscopy Discontinued 07/28/2021, 03/12, 02/14/2015 Colorectal Cancer Screening Discontinued Cologuard Discontinued Hepatitis B Immunization Aged Out No longer eligible based on patient's age to complete this topic Immunochemical Fecal Occult Blood Discontinued Meningococcal Immunization (ACWY) Aged Out No longer eligible based on patient's age to complete this topic Rotavirus Immunization Aged Out No lo nger eligible based on patient's age to complete this topic Procedures Procedure Name Priority Date/Time Associated Diagnosis Comments COLONOSCOPY Routine 04/08/2020 from Last 3 Months or Most Recently Relevant to Health Maintenance Results * COLONOSCOPY (04/08/2020) Gentry Stover DO PROCEDURE/MINOR SURGICAL ORDERA BLES Final Result from Last 3 Months or Most Recently Relevant to Health Maintenance Insurance MEDICARE C [employer] on file Care Teams Complex Case Manager Relationship Specialty Start Date End Date Kelvin Velasquez MD PCP - General Internal Medicine 03/15/18 Gentry Stover DO Gastroenterology 03/28/15
--- OUTSIDE RECORDS SUMMARY | 2024-09-22 07:46 | XMS_ITS | Data Portability ---
Author Organization [place] [facility] [employer], Main Office Address [address] [place] [address] Care Team Providers Care Clinical Geneticist Name Role Phone MELLISSA RICHARDS Primary Care Provider [phone] MELLISSA RICHARDS Referring Provider [phone] Assessment No assessment recorded. Plan of Treatment Reminders Order Date Submit Date Provider Last Modified By Organization Details Last Modified Time Details Appointments Any 15 2024 08:15A Rigoberto Richards MD Not available Not available Not available Lab vitamin D, 25-hydrox y, total, serum 2023 [facility] (Lab), [address] [place], [address], 10/13/2023 21:25:40 lipid panel, serum 2023 024 [facility] (Lab), [address] [place], [address], 10/13/2023 21:25:40 CMP, serum or plasma 2023 024 [facility] (Lab), [address] [place], [address], 10/13/2023 21:11:49 lipid panel, serum 2023 024 [facility] (Lab), [address] [place], [address], 10/13/2023 21:11:53 vitamin D, 25-hydrox y, total, serum 2022 023 [facility] (Lab), [address] [place], [address], 11/26/2022 23:24:48 CMP, serum or plasma 2022 023 [facility] (Lab), [address] [place], [address], 11/26/2022 20:45:06 lipid panel, serum 2022 023 [facility] (Lab), [address] [place], [address], 11/26/2022 20:45:10 Referral EGD referral - Please call patient to schedule an appointme nt. Thank you. 2024 025 [email or web address] Gautam quinones MD, [address], [address], [place], [address], 08/01/2024 14:19:46 Procedures None recorded. Surgeries None recorded. Imaging MAMMO, screening , bilateral - no auth required 2023 024 [email or web address] 2 [facility], [address], [address], [place], [address], 10/27/2023 08:33:42 Medication Orders sertralin e 50 mg tablet [address] [facility] #[id number], [address], [place], [place], [id number], 08/01/2024 09:51:37 sertralin e 50 mg tablet [address] [facility] #[id number], [address], [place], [place], [id number], 11/17/2023 09:50:46 citalopra m 20 mg tablet 2023 024 [facility] #18431, [address], [place], [place], [id number], 08/01/2024 09:42:01 duloxetin e 20 mg capsule,d elayed release 2022 023 [email or web address] [facility] #20010, [address], [place], [place], [id number], 10/13/2023 09:15:12 Patient TargetsNo targets recorded. Patient Instructions Encounter Date Encounter Id Patient Instructions Last Modified By Organization Details Last Modified Time 10/13/2023 [id number] dementia rating scale-2* Not available 10/13/2023 12:00:04 alcohol misuse* Not available 10/13/2023 12:00:04 depression screening* Not available 10/13/2023 12:00:04 multi-dimensiona l health assessment questionnaire* [email or web address] Not available 10/13/2023 12:00:04 Personalized Hea lth Plan and Screening Recommendations Advance Directives - Do you have one? Yes Advance Directives - Do we have your advance directive on file in your health record? No, please bring in a copy at your earliest convenience Primary Prevention/Interven tion (prevents or decreases the chance of common diseases from occurring) Smoking Risk: Non Smoker Alcohol Misuse Screening: Negative Weight: Appropriate Overwei ght continue your current weight loss efforts try to lose 5% of your body weight try to lose 10% of your body weight Physical activity: Need more exercise/physical activity Nutrition: Good Average Fall Risk (screened today): Low Vaccines Pneumococcal: Ordered Recommended today Recommended today, but you have declined No further needed Influenza: Your next one in the fall of this year Chronic Disease Risks Stroke: Low Risk I have no recommendations Act israel diagnosis, Continue current treatment plan Heart Attack: Low risk I have no recommendations Clogging of the Arteries: Low risk I have no recommendations Diabetes: Low Risk I have no recommendations Secondary Prevention/Interven tion (detects treatable diseases before they may cause symptoms, disability, or ) Breast Cancer Screening with mammogram: Your next mammogram: Ordered Recommended today Cervical/Uterine/Ov elvis Cancer Screening: No screening necessary Osteoporosis Screening: Date Screening Last Performed: Colon Cancer Screening: Colonoscopy Date Screening Last Performed: __2021____ Eye Disease Screening: Dementia Risk: Low I have no recommendations Depression Screening: Negative Active diagnosis, Continue current treatment plan [email or web address] Not available 10/13/2023 10:00:18 Reason for Referral EGD Referral for Dysphagia Please call patient to schedule an appointment. Thank you. Referring Physician: Mellissa Richards, Internal Medicine, Encounter Date: 08/01/2024 Results Created Date Observation Date Name Description Value Unit Range Abnormal Flag Note LastModifiedBy Organization Detail LastModifiedTime 11/27/1911/26/2022 VITAM IN D 25-HY DROXY vd25oh 90.5 NG/mL 30-100 Vitam in D Statu s: Defic ient: <20 ng/mL Insuf ficie nt: 20-29 ng/mL Suffi cient : 30-10 0 ng/mL Not Available [facility] (Lab) [address] [place], [address], 11/26/2022 20:43:22 11/27/19 23 11/26/2022 COMPR EHENS ISRAEL METAB OLIC PANEL sodium 140 mmol/ L 137-14 5 Not Available [facility] (Lab) [address] [place], [address], 11/26/2022 20:45:05 11/27/19 23 11/26/2022 COMPR EHENS ISRAEL METAB OLIC PANEL potassium 4.4 mmol/ L 3.5-5. 1 Not Available [facility] (Lab) [address] [place], [address], 11/26/2022 20:45:05 11/27/19 23 11/26/2022 COMPR EHENS ISRAEL METAB OLIC PANEL chloride 101 mmol/ L 98-107 Not Available [facility] (Lab) [address] [place], [address], 11/26/2022 20:45:05 11/27/19 23 11/26/2022 COMPR EHENS ISRAEL METAB OLIC PANEL carbon dioxide 28 mmol/ L 22-30 Not Available [facility] (Lab) [address] [place], [address], 11/26/2022 20:45:05 11/27/19 23 11/26/2022 COMPR EHENS ISRAEL METAB OLIC PANEL anion gap 15.4 mmol/ L 14-22 Not Available [facility] (Lab) [address] [place], [address], 11/26/2022 20:45:05 11/27/19 23 11/26/2022 COMPR EHENS ISRAEL METAB OLIC PANEL glucose 83 mg/dL 70-99 Not Available [facility] (Lab) [address] [place], [address], 11/26/2022 20:45:05 11/27/19 23 11/26/2022 COMPR EHENS ISRAEL METAB OLIC PANEL BUN 12 mg/dL 8-19 Not Available [facility] (Lab) [address] [place], [address], 11/26/2022 20:45:05 11/27/19 23 11/26/2022 COMPR EHENS ISRAEL METAB OLIC PANEL creatinine 0.60 mg/dL 0.66-1 .25 low Not Available [facility] (Lab) [address] [place], [address], 11/26/2022 20:45:05 11/27/19 23 11/26/2022 COMPR EHENS ISRAEL METAB OLIC PANEL GFR >60 Refer ence Range : Tyler ge GFR Healt hy Adult : >60 mL/mi n/1.7 3 m2 Chron ic Kidne y Disea se: 15-60 mL/mi n/1.7 3 m2 Kidne y Failu re: <15/m L/min /1.73 m2 www.n iddk. nih.g ov The MDRD study equat ion has not been valid ated in child tony <18 years of age; pregn ant women ; the elder ly >85 years of age; or in some racia l or ethni c subgr oups, such as Hischasidy nics. Outsi de the valid ated quentin eters , estim ated GFR is less accur ate, requi ring clini ariadna judgm ent on a case- by-ca se basis . Clini ariadna inter preta tion for other races and ages must be made by the clini leonard. The MDRD study equat ion has not been valid ated for the evalu ation of serum creat inine relat ed to nutri ignacio l statu s or medic ation usage . For perso ns <18 years of age, a pedia tric GFR calcu lator is avail able on the [facility] websi te: https ://iban reyes.o rg/pr ofess ional s/kdo qi/gf r_cal culat or Not Available [facility] (Lab) [address] [place], [address], 11/26/2022 20:45:05 11/27/19 23 11/26/2022 COMPR EHENS ISRAEL METAB OLIC PANEL alkaline phosphatase 104 U/L 38-126 Not Available [facility] (Lab) [address] [place], [address], 11/26/2022 20:45:05 11/27/19 23 11/26/2022 COMPR EHENS ISRAEL METAB OLIC PANEL alanine aminotransfe rase 23 U/L 0-35 Not Available [facility] (Lab) [address] [place], [address], 11/26/2022 20:45:05 11/27/19 23 11/26/2022 COMPR EHENS ISRAEL METAB OLIC PANEL aspartate aminotransfe rase 25 U/L 15-37 Not Available [facility] (Lab) [address] [place], [address], 11/26/2022 20:45:05 11/27/19 23 11/26/2022 COMPR EHENS ISRAEL METAB OLIC PANEL bilirubin, total 0.50 mg/dL 0.20-1 .30 Not Available [facility] (Lab) [address] [place], [address], 11/26/2022 20:45:05 11/27/19 23 11/26/2022 COMPR EHENS ISRAEL METAB OLIC PANEL calcium 9.6 mg/dL 8.4-10 .2 Not Available [facility] (Lab) [address] [place], [address], 11/26/2022 20:45:05 11/27/19 23 11/26/2022 COMPR EHENS ISRAEL METAB OLIC PANEL total protein 7.6 g/dL 6.3-8. 2 Not Available [facility] (Lab) [address] [place], [address], 11/26/2022 20:45:05 11/27/19 23 11/26/2022 COMPR EHENS ISRAEL METAB OLIC PANEL albumin 4.5 g/dL 3.0-4. 4 high Not Available [facility] (Lab) [address] [place], [address], 11/26/2022 20:45:05 11/27/19 23 11/26/2022 COMPR EHENS ISRAEL METAB OLIC PANEL globulin 3.1 g/dL 2.6-4. 2 Not Available [facility] (Lab) [address] [place], [address], 11/26/2022 20:45:05 11/27/19 23 11/26/2022 COMPR EHENS ISRAEL METAB OLIC PANEL A/G ratio 1.5 ratio 1.0-2. 0 Not Available [facility] (Lab) [address] [place], [address], 11/26/2022 20:45:05 11/27/19 23 11/26/2022 LIPID PANEL cholesterol 207 mg/dL 140-19 9 high NIH ALBA NSUS RECOM MENDA TION FOR SHANTHI STERO L: ADULT CHILD LOW RISK: <200 <170 BORDE RLINE : <200- 239 ----- HIGH RISK: >240 >200 Not Available [facility] (Lab) [address] [place], [address], 11/26/2022 20:45:10 11/27/19 23 11/26/2022 LIPID PANEL triglyceride s 146 mg/dL 0-150 NIH ALBA NSUS REPOR T RECOM MENDA TION FOR TRIGL YCERI TRICE: ADULT CHILD LOW RISK: <150 ----- BODER LINE: 150-1 99 ----- HIGH RISK: >200 ----- Not Available [facility] (Lab) [address] [place], [address], 11/26/2022 20:45:10 11/27/19 23 11/26/2022 LIPID PANEL HDL cholesterol 90 mg/dL 40- Not Available [facility] (Lab) [address] [place], [address], 11/26/2022 20:45:10 11/27/19 23 11/26/2022 LIPID PANEL LDL cholesterol, calculated 88 mg/dL 0-130 NIH ALBA NSUS REPOR T RECOM MENDA TIONS FOR LDL: ADULT CHILD LOW RISK <130 <110 (OPTI MAL LDL) <100 ----- BORDE RLINE : 130-1 59 ----- HIGH RISK: >160 >130 A TRIGL YCERI DE RESUL T >400 INVAL IDATE S THE CALCU LATIO N FOR LDL FRACT IONAT ION - THE LDL RESUL T WILL NOT BE REPOR MARCO A. Not Available [facility] (Lab) [address] [place], [address], 11/26/2022 20:45:10 10/13/19 24 10/13/2023 COMPR EHENS ISRAEL METAB OLIC PANEL sodium 139 mmol/ L 137-14 5 Not Available [facility] (Lab) [address] [place], [address], 10/13/2023 21:11:49 10/13/19 24 10/13/2023 COMPR EHENS ISRAEL METAB OLIC PANEL potassium 4.3 mmol/ L 3.5-5. 1 Not Available [facility] (Lab) [address] [facility] [place], [address], 10/13/2023 21:11:49 10/13/19 24 10/13/2023 COMPR EHENS ISRAEL METAB OLIC PANEL chloride 101 mmol/ L 98-107 Not Available [facility] (Lab) [address] [place], [address], 10/13/2023 21:11:49 10/13/19 24 10/13/2023 COMPR EHENS ISRAEL METAB OLIC PANEL carbon dioxide 31 mmol/ L 22-30 high Not Available [facility] (Lab) [address] [place], [address], 10/13/2023 21:11:49 10/13/19 24 10/13/2023 COMPR EHENS ISRAEL METAB OLIC PANEL anion gap 11.3 mmol/ L 14-22 low Not Available [facility] (Lab) [address] [place], [address], 10/13/2023 21:11:49 10/13/19 24 10/13/2023 COMPR EHENS ISRAEL METAB OLIC PANEL glucose 95 mg/dL 70-99 Not Available [facility] (Lab) [address] [place], [address], 10/13/2023 21:11:49 10/13/19 24 10/13/2023 COMPR EHENS ISRAEL METAB OLIC PANEL BUN 15 mg/dL 8-19 Not Available [facility] (Lab) [address] [place], [address], 10/13/2023 21:11:49 10/13/19 24 10/13/2023 COMPR EHENS ISRAEL METAB OLIC PANEL creatinine 0.68 mg/dL 0.66-1 .25 Not Available [facility] (Lab) [address] [place], [address], 10/13/2023 21:11:49 10/13/19 24 10/13/2023 COMPR EHENS ISRAEL METAB OLIC PANEL GFR >60 Refer ence Range : Tyler ge GFR Healt hy Adult : >60 mL/mi n/1.7 3 m2 Chron ic Kidne y Disea se: 15-60 mL/mi n/1.7 3 m2 Kidne y Failu re: <15/m L/min /1.73 m2 www.n iddk. nih.g ov The MDRD study equat ion has not been valid ated in child tony <18 years of age; pregn ant women ; the elder ly >85 years of age; or in some racia l or ethni c subgr oups, such as Hispa nics. Outsi de the valid ated quentin eters , estim ated GFR is less accur ate, requi ring clini ariadna judgm ent on a case- by-ca se basis . Clini ariadna inter preta tion for other races and ages must be made by the clini leonard. The MDRD study equat ion has not been valid ated for the evalu ation of serum creat inine relat ed to nutri ignacio l statu s or medic ation usage . For perso ns <18 years of age, a pedia tric GFR calcu lator is avail able on the [facility] websi te: https ://iban saucedo.raine reyes.o rg/pr ofess ional s/kdo qi/gf r_cal culat or Not Available [facility] (Lab) [address] [place], [address], 10/13/2023 21:11:49 10/13/19 24 10/13/2023 COMPR EHENS ISRAEL METAB OLIC PANEL alkaline phosphatase 105 U/L 38-126 Not Available [facility] (Lab) [address] [place], [address], 10/13/2023 21:11:49 10/13/19 24 10/13/2023 COMPR EHENS ISRAEL METAB OLIC PANEL alanine aminotransfe rase 21 U/L 0-35 Not Available [facility] (Lab) [address] [place], [address], 10/13/2023 21:11:49 10/13/19 24 10/13/2023 COMPR EHENS ISRAEL METAB OLIC PANEL aspartate aminotransfe rase 24 U/L 15-37 Not Available [facility] (Lab) [address] [place], [address], 10/13/2023 21:11:49 10/13/19 24 10/13/2023 COMPR EHENS ISRAEL METAB OLIC PANEL bilirubin, total 0.60 mg/dL 0.20-1 .30 Not Available [facility] (Lab) [address] [place], [address], 10/13/2023 21:11:49 10/13/19 24 10/13/2023 COMPR EHENS ISRAEL METAB OLIC PANEL calcium 10.4 mg/dL 8.4-10 .2 high Not Available [facility] (Lab) [address] [place], [address], 10/13/2023 21:11:49 10/13/19 24 10/13/2023 COMPR EHENS ISRAEL METAB OLIC PANEL total protein 6.9 g/dL 6.3-8. 2 Not Available [facility] (Lab) [address] [place], [address], 10/13/2023 21:11:49 10/13/19 24 10/13/2023 COMPR EHENS ISRAEL METAB OLIC PANEL albumin 4.1 g/dL 3.0-4. 4 Not Available [facility] (Lab) [address] [place], [address], 10/13/2023 21:11:49 10/13/19 24 10/13/2023 COMPR EHENS ISRAEL METAB OLIC PANEL globulin 2.8 g/dL 2.6-4. 2 Not Available [facility] (Lab) [address] [place], [address], 10/13/2023 21:11:49 10/13/19 24 10/13/2023 COMPR EHENS ISRAEL METAB OLIC PANEL A/G ratio 1.5 ratio 1.0-2. 0 Not Available [facility] (Lab) [address] [place], [address], 10/13/2023 21:11:49 10/13/19 24 10/13/2023 LIPID PANEL cholesterol 198 mg/dL 140-19 9 NIH ALBA NSUS RECOM MENDA TION FOR SHANTHI STERO L: ADULT CHILD LOW RISK: <200 <170 BORDE RLINE : <200- 239 ----- HIGH RISK: >240 >200 Not Available [facility] (Lab) [address] [place], [address], 10/13/2023 21:11:53 10/13/19 24 10/13/2023 LIPID PANEL triglyceride s 104 mg/dL 0-150 NIH ALBA NSUS REPOR T RECOM MENDA TION FOR TRIGL YCERI TRICE: ADULT CHILD LOW RISK: <150 ----- BODER LINE: 150-1 99 ----- HIGH RISK: >200 ----- Not Available [facility] (Lab) [address] [place], [address], 10/13/2023 21:11:53 10/13/19 24 10/13/2023 LIPID PANEL HDL cholesterol 90 mg/dL 40- Not Available [facility] (Lab) [address] [place], [address], 10/13/2023 21:11:53 10/13/19 24 10/13/2023 LIPID PANEL LDL cholesterol, calculated 87 mg/dL 0-130 NIH ALBA NSUS REPOR T RECOM MENDA TIONS FOR LDL: ADULT CHILD LOW RISK <130 <110 (OPTI MAL LDL) <100 ----- BORDE RLINE : 130-1 59 ----- HIGH RISK: >160 >130 A TRIGL YCERI DE RESUL T >400 INVAL IDATE S THE CALCU LATIO N FOR LDL FRACT IONAT ION - THE LDL RESUL T WILL NOT BE REPOR MARCO A. Not Available [facility] (Lab) [address] [place], [address], 10/13/2023 21:11:53 10/13/19 24 10/13/2023 VITAM IN D 25-HY DROXY vd25oh 84.4 NG/mL 30-100 Vitam in D Statu s: Defic ient: <20 ng/mL Insuf ficie nt: 20-29 ng/mL Suffi cient : 30-10 0 ng/mL Not Available [facility] (Lab) [address] [place], [address], 10/13/2023 21:19:43 03/14/20 24 12/18/2023 MAMMO , scree rosa, digit al, bilat eral No observ ation record ed. BARCODE Not Available 2023 17:32:35 08/02/19 25 07/29/2023 colon oscop y scree rosa (PROC ) No observ ation record ed. BARCODE Not Available 2024 13:43:06 Result Notes None recorded. Problems Name Problem SNOMED Code Status Onset Date Resolution Date Notes Provider Name and Address Organization Details Recorded Time Carpal tunnel syndrome of left wrist 28248648184 9102 Active 2022 Mellissa Richards MD [address] [facility], [address], [place], [address] , [facility] [employer] 3 10:46:09 Acute urinary tract infection 599834822 Active 2022 Roxane Hall LPN [facility], [facility] 3 11:56:58 Hyperlipi demia 46496984 Active 2023 Mellissa Richards MD [address] [facility], [address], [place], [address] , [facility] 4 09:29:11 Sinusitis 92011892 Active 2024 Kathi Zhang MA null, [place] [facility] 5 13:03:10 Dysphagia 13058866 Active 2024 Mellissa Richards MD [address] [facility], [facility] [address], [place], [address] , [facility] 5 09:50:18 Abdominal pain 01462180 Active 2024 Roxane Hall LPN null, [place] [facility] 5 10:53:45 Edema of lower extremity 372632664 Active 2021 Not Available [facility] 3 04:53:02 Pain of left shoulder joint 77457926816 261788 Active 2021 Not Available [facility] 3 04:53:02 Pain of right shoulder joint 12894735608 603148 Active 2021 Not Available [facility] 3 04:53:02 Menopausa l and postmenop ausal disorders 351114747 Completed 201609/16/2017 Not Available [facility] 3 04:53:02 Edema 080090631 Completed 202103/25/2022 Not Available [facility] 3 04:53:03 Adult health examinati on Active 2020 Not Available [facility] 3 04:53:03 Knee pain Completed Not Available [facility] 3 04:53:03 Osteopeni a 359213714 Active 2017 Not Available [facility] 3 04:53:03 Depressiv e disorder 36173094 Active Not Available [facility] 3 04:53:03 Angioedem a 62424284 Active 2021 Not Available [facility] 3 04:53:03 Obesity 668452264 Active 2020 Not Available [facility] 3 04:53:03 Acute urinary tract infection 551921157 Completed 202102/10/2022 Roxane Hall LPN [facility], [facility] [employer] [facility] 3 11:56:58 Acute upper respirato ry infection 36636501 Completed Not Available [facility] 3 04:53:04 Essential hypertens ion 07273111 Active Not Available [facility] 3 04:53:04 Polyp of colon 76878343 Active Not Available [facility] 3 04:53:04 Urinary tract infectiou s disease 66516344 Completed Not Available [facility] 3 04:53:04 Contact dermatiti s due to plants, except food Completed Not Available [facility] 04:53:04 Psoriasis 8806058 Active Not Available [facility] 04:53:04 Problem Notes None recorded. Procedures Surgical History Date Name Laterality Status Provider Name and Address Organization Details Recorded Time 03/09/20 24 Medicare Wellness CPT Code, subsequent completed MARIFER Engel [facility] [employer] [facility] 03/09/2024 11:34:47 10/13/19 24 Medicare Wellness CPT Code, subsequent completed Gely Botello RN [facility] [employer] 10/13/2023 09:47:33 07/31/19 22 Date of Last Colonoscopy completed Not Available [facility] 07/08/2022 04:43:17 04/16/20 20 Most Recent Bone Density completed Not Available [facility] 07/08/2022 04:43:17 Imaging Results Imaging Date Name Status LastModified by Organiz ation Details LastModified Time 12/18/2023 MAMMO, screening, digital, bilateral completed BARCODE Information not available 03/14/2024 17:32:35 07/29/2023 colonoscopy screening (PROC) completed BARCODE Information not available 08/01/2024 13:43:06 Procedure Notes None recorded. Medical Equipment None Reported. Allergies Allergen ID Allergen Name Allergen Category Reaction Reaction Severity Criticality Documentation Date Start Date Code Code System Note Provider Name and Address Organization Details Recorded Time 45048 citalopra m medicatio n Not available Not available Not available 11/17/2023 2556 RxNorm hallu cinat ion Mellissa Richards MD [address], [address], [place], [address] , [facility] 4 09:47:40 8361 furosemid e medicatio n angioedem a rash Not available Not available Not available 07/08/2022 4603 RxNorm Not Available [facility] 3 05:04:49 8363 codeine medicatio n respirato ry distress severe Not available 07/08/2022 2670 RxNorm Not Available [facility] 3 05:04:49 8364 Cipro medicatio n Not available Not available Not available 07/08/2022 53211 3 RxNorm sob Not Available [facility] 3 05:04:49 Medications Name Sig Start Date Stop Date Status Note LastModified by Organization Details LastModified Time cyclobenz aprine 10 mg tablet Take 1 tablet twice a day by oral route as needed. 09/10 completed Not Available Not Available Not Available amoxicill in 500 mg capsule Take 1 capsule every 8 hours by oral route for 7 days. 2024 active per 07/27/24 patient case / ds Not Available Not Available Not Available prednison e 10 mg tablet 02/13 completed Not Available Not Available Not Available azithromy bentley 250 mg tablet as directed 04/24 completed Not Available Not Available Not Available aspirin 325 mg tablet Take 1 tablet every day by oral route. 09/10 completed Not Available Not Available Not Available ofloxacin 0.3 % eye drops 03/06 completed Not Available Not Available Not Available tizanidin e 4 mg tablet 11/18 completed Not Available Not Available Not Available fluconazo le 150 mg tablet Take 1 mg every day by oral route for 1 day. 09/10 completed Not Available Not Available Not Available hydrocodo ne 5 mg-acetam inophen 325 mg tablet 02/08 completed Not Available Not Available Not Available metronida zole 0.75 % (37.5 mg/5 gram) vaginal gel IVB FOR 5 NIGHTS. active Not Available Not Available No t Available metronida zole 500 mg tablet 02/08 completed Not Available Not Available Not Available ciproflox acin 250 mg tablet TK 1 T PO Q 12 H 09/10 completed Not Available Not Available Not Available amlodipin e 5 mg tablet TAKE 1 TABLET BY MOUTH EVERY DAY 2024 active Not Available Not Available Not Avai lable sulfameth oxazole 800 mg-trimet hoprim 160 mg tablet 02/11 completed Not Available Not Available Not Available ketorolac 0.5 % eye drops 03/06 completed Not Available Not Available Not Available Macrobid 100 mg capsule Take 1 capsule every 12 hours by oral route. 10/12 completed Not Available Not Available Not Available citalopra m 20 mg tablet Take 1 tablet every day by oral route. 08/01 completed Not Available Not Available Not Available prednisol one acetate 1 % eye drops,fanny pension 03/06 completed Not Available Not Available Not Available Kenalog 10 mg/mL suspensio n for injection In office injectio n administ ered by the provider 10/12 completed [facility]: [phone] 20 Not Available Not Available Not Available amlodipin e 10 mg tablet Take 1 tablet every day by oral route. active Not Available Not Available No t Available nystatin- triamcino lone 100,000 unit/g-0. 1 % topical cream APPLY TO THE AFFECTED AREA BID PRN active Not Available Not Available No t Available furosemid e 20 mg tablet TAKE 1 TABLET BY MOUTH EVERY DAY 05/19 completed Not Available Not Available Not Available clobetaso l 0.05 % topical ointment APPLY A THIN LAYER TO THE AFFECTED AREA(S) BY TOPICAL ROUTE 2 TIMES PER DAY 08/01 completed as needed for psoriasi s Not Available Not Available Not Available methylpre dnisolone 4 mg tablets in a dose pack take as directed 03/25 completed Not Available Not Available Not Available celecoxib 100 mg capsule Take 1 capsule twice a day by oral route. 07/23 completed Not Available Not Available Not Available fluticaso ne propionat e 50 mcg/actua tion nasal spray,fanny pension USE 2 SPRAYS IN EACH NOSTRIL ONCE A DAY active Not Available Not Available No t Available sertralin e 50 mg tablet Take 1 tablet every day by oral route at bedtime. 2024 active Not Available Not Available Not Avai lable duloxetin e 20 mg capsule,d elayed release Take 1 capsule every day by oral route. 10/12 completed Not Available Not Available Not Available duloxetin e 30 mg capsule,d elayed release TAKE ONE CAPSULE BY MOUTH DAILY 02/13 completed didnt like the way it made her feel Not Available Not Available Not Available eszopiclo ne 3 mg tablet TK 1 T PO ONCE AT SLEEP LAB 11/18 completed Not Available Not Available Not Available losartan 100 mg-hydroc hlorothia zide 12.5 mg tablet TAKE 1 TABLET BY MOUTH EVERY DAY 2024 active JULIANNE 03/09/24 NOV 08/01/24 ok to rf Not Available Not Available Not Available lidocaine (PF) 10 mg/mL (1 %) injection solution In office injectio n administ ered by the provider 10/12 [id number]|2024-09-22 07:46:00|2024-09-22 07:45:00|XMS_ITS|BKG DAEMON|External Medical Summaries|[id number]|" Continuity of Care Document (C-CDA R2.1) (Encounter date: 11/01/2008 10:30 AM) Created on: September 22, 2024 Tequila Kelly : 1945 Sex: Female Author Organization [facility] Address [address] [place] [address] [place] [phone] Phone Care Team Providers Care Clinical Geneticist Name Role Phone Hewitt OD, Gentry Unavailable Unavailable Procedures Procedure Date Eye Exam & Treatment Refraction Eye Exam & Treatment Refraction Advance Directives Directive Yes / No Effective Date File Name No Information Encounters Encounter Description Practice Location Reason(s) For Visit Diagnoses Date Provider Providers Copied on Encounter [facility], [address], [place], [place], [id number], [place] tel:[phone] [facility] No Information Marshall-2 5-200 9 Hewitt OD Gentry. [address] , [address], [place], [address], [place]. tel:[phone] [facility], [address], [place], [place], [id number], [place] tel:[phone] [facility] No Information Aug- 1-200 8 Hewitt OD Gentry. [address] , [address], [place], [address], [place]. tel:[phone] Family History Family Member Type Diagnosis Age At Onset No Information Payers Payer name Insurance type Covered green party ID Authoriza tion(s) No Information Social History Type Description Quantity Date Captured Comments Sex Female Smoking Status No Information Chief Complaint And Reason For Visit No Information Reason For Referral Reason For Referral No Information History Of Present Illness Encounter Date Complaint History Of Prese nt Illness No Information Functional Status Date Functional Assessmen t No Information Instructions Date Instruction Additional Infor mation No Information Assessments Type Assessment Date No Information Patient Care Teams Name Effective Dates (start - stop) Status Members No Information "
[2024-09-22 08:07] LABS: Estimated Glomerular Filt Rate > 60
== END 2024-09-22 07:43 | disposition home or self-care (01) ==
PROVIDERS: PCP Internal Medicine; Visit Provider Internal Medicine
DX: K44.9 Diaphragmatic hernia without obstruction or gangrene (principal); R91.1 Solitary pulmonary nodule
CPT/HCPCS: 74160; Q9967

== ENCOUNTER 2024-10-16 00:25 | Day surgery (SDC) | payer MEDICARE, SELFPAY ==
[2024-10-04 15:00] VITALS: BMI 35.9
--- OUTSIDE RECORDS SUMMARY | 2024-10-16 00:33 | XMS_ITS | Clinical Summary ---
Author Organization [facility] Address [facility] [address] [place] [address] [address] [place] [address] Phone Care Team Providers Care Insulation Packer Name Role Phone Gentry Stover Gio DO Unavailable [phone] Kelvin Velasquez MD Primary Care Provider [phone] Allergies Active Allergy Reactions Criticality Noted Date [...] 11:54 AM CDT Height 154.9 cm (5' 1) 07/28/2021 11:54 AM CDT Body Mass Index 35.9 07/28/2021 11:54 AM CDT Plan of Treatment Health Maintenance Due Date Last Done Comments Hepatitis C Virus (HCV) Screening 1945 TdaP Immunization 1945 Zoster Immunization (1 of 2) 11/28/1997 Respiratory Syncytial Virus (RSV) Immunization (Adult) (1 - 1-dose 75+ series) 11/28/2022 SARS-COV-2 Immunization ( season) 2024 03/05/2021, 07/19/2020, 07/12/2020, Additional history exists Influenza Immunization (Season Ended) 2025 03/06/2021, 02/14/2020, 03/13/2019, Additional history exists Pneumococcal Immunization (50+ years) Completed 08/11/2018, 03/08/2017 Pneumococcal Immunization Combined Discontinued 08/11/2018, 03/08/2017 Colonoscopy Discontinued 07/28/2021, 03/12, 02/14/2015 Colorectal Cancer Screening Discontinued Retired - Colonoscopy High Risk Discontinued 07/28/2021, 04/08/2020, 02/14/2015 Cologuard Discontinued Hepatitis B Immunization Aged Out No longer eligible based on patient's age to complete this topic Human Papillomavirus (HPV) Immunization Aged Out No longer eligible based [...] MEDICARE C [employer] on file Care Teams Insulation Packer Relationship Specialty Start Date End Date Kelvin Velasquez MD PCP - General Internal Medicine 03/15/18 Gentry Stover DO Gastroenterology 03/28/15
--- OUTSIDE RECORDS SUMMARY | 2024-10-16 00:33 | XMS_ITS | Data Portability ---
Author Organization [place] - [facility], Main Office Address [address] [place] [address] Care Team Providers Care Canvas Baster Jumpbasting Name Role Phone MELLISSA VELASQUEZ Primary Care Provider MELLISSA VELASQUEZ Referring Provider Assessment No assessment recorded. Plan of Treatment Reminders Order Date Submit Date Provider Last Modified By Organization Details Last Modified Time Details Appointments Any 15 2024 08:15A Rigoberto Velasquez MD Not available Not available Not available Lab vitamin D, 25-hydrox y, total, serum 2023 024 [facility] (Lab), [address] [place], [address], 10/13/2023 21:25:40 lipid panel, serum 2023 024 [facility] (Lab), [address] [place], [address], 10/13/2023 21:25:40 CMP, serum or plasma 2023 024 [facility] (Lab), [address] [place], [address], 10/13/2023 21:11:49 lipid panel, serum 2023 024 [facility] (Lab), [address] [place], [address], 10/13/2023 21:11:53 vitamin D, 25-hydrox y, total, serum 2022 023 [facility] (Lab), [address] [place], [address], 11/26/2022 23:24:48 CMP, serum or plasma 2022 023 [facility] (Lab), [address] [place], [address], 11/26/2022 20:45:06 lipid panel, serum 2022 023 [facility] (Lab), [address] [place], [address], 11/26/2022 20:45:10 Referral EGD referral - Please call patient to schedule an appointme nt. Thank you. 2024 025 [email or web address] Gautam quinones MD, [facility] [address], [place], [address], 08/01/2024 14:19:46 Procedures None recorded. Surgeries None recorded. Imaging MAMMO, screening , bilateral - no auth required 2023 024 [email or web address] 2 [facility], [address], [address], [place], [address], 10/27/2023 08:33:42 Medication Orders sertralin e 50 mg tablet 2024 025 [facility] #[id number], [address], [place], [place], [id number], 08/01/2024 09:51:37 sertralin e 50 mg tablet 2023 024 [facility] #[id number], [address], [place], [place], [id number], 11/17/2023 09:50:46 citalopra m 20 mg tablet 2023 024 [email or web address] [facility] #85628, [address], [place], [place], [id number], 08/01/2024 09:42:01 duloxetin e 20 mg capsule,d elayed release 2022 023 [email or web address] [facility] #[id number], [address], [place], [place], [id number], 10/13/2023 09:15:12 Patient TargetsNo targets recorded. Patient Instructions Encounter Date Encounter Id Patient Instructions Last Modified By Organization Details Last Modified Time 10/13/2023 [id number] dementia rating scale-2* Not available 10/13/2023 12:00:04 [...] Non Smoker Alcohol Misuse Screening: Negative Weight: Overweight try to lose 10% of your body weight Physical activity: Need more exercise/physical activity Nutrition: Average Refer to attached handout Heart-Healthy Diet: After Your Visit Refer to attached handout DASH Diet: After Your Visit Recommend consultation with a ferry engineer Eat heart healthy diet Fall Risk (screened today): Low Vaccines Pneumococcal: No further needed Influenza: Your next one in the fall of this year Chronic Disease Risks Stroke: Low Risk Active diagnosis, Continue current treatment plan Heart Attack: Low risk I have no recommendations Clogging of the Arteries: Low risk I have no recommendations Diabetes: Low Risk I have no recommendations Secondary Prevention/Interven tion (detects treatable diseases before they may cause symptoms, disability, or ) Breast Cancer Screening with mammogram: Recommended today Cervical/Uterine/Ov elvis Cancer Screening: No screening necessary Osteoporosis Screening: Your next DEXA in: Ordered Recomme nded today Recommended today, but you have declined No screening necessary up to date Date Screening Last Performed: Colon Cancer Screening: Colonoscopy In: Ordered Recomme nded Recommended today, but you have declined No screening necessary due 2024 Date Screening Last Performed: __2021____ Eye Disease Screening: Ordered Recommended today Recommended today, but you have declined No Eye exam necessary Your next exam in: goes every 2-3 yrs Dementia Risk: Low I have no recommendations Depression Screening: Negative Active diagnosis, Continue current treatment plan [email or web address] Not available 10/13/2023 10:00:18 Reason for Referral EGD Referral for Dysphagia Please call patient to schedule an appointment. Thank you. Referring Physician: Mellissa Velasquez, Internal Medicine, Encounter Date: 08/01/2024 Results Created Date Observation Date Name Description Value Unit Range Abnormal Flag Note LastModifiedBy Organization Detail LastModifiedTime 11/27/1911/26/2022 VITAM IN D 25-HY DROXY [id number] 90.5 NG/mL 30-100 Vitam in D Statu s: Defic ient: <20 ng/mL Insuf ficie nt: 20-29 ng/mL Suffi cient : 30-10 0 ng/mL Not Available [facility] (Lab) [address] [place], [address], 11/26/2022 20:43:22 11/27/19 23 11/26/2022 COMPR EHENS ISRAEL METAB OLIC PANEL sodium 140 mmol/ L 137-14 5 Not Available [facility] (Lab) [address] [place], [address], 11/26/2022 20:45:05 11/27/19 23 11/26/2022 COMPR EHENS ISRAEL METAB OLIC PANEL potassium 4.4 mmol/ L 3.5-5. 1 Not Available [facility] (Lab) [address] [place], [address], 11/26/2022 20:45:05 11/27/19 23 11/26/2022 COMPR EHENS ISRAEL METAB OLIC PANEL chloride 101 mmol/ L 98-107 Not Available [facility] (Lab) [address] [place], [address], 11/26/2022 20:45:05 11/27/19 23 11/26/2022 COMPR EHENS ISRAEL METAB OLIC PANEL carbon dioxide 28 mmol/ L 22-30 Not Available [facility] (Lab) [address] [place], [address], 11/26/2022 20:45:05 11/27/19 23 11/26/2022 COMPR EHENS ISRAEL METAB OLIC PANEL anion gap 15.4 mmol/ L 14-22 Not Available [facility] (Lab) [address] [place], [address], 11/26/2022 20:45:05 11/27/19 23 11/26/2022 COMPR EHENS ISRAEL METAB OLIC PANEL glucose 83 mg/dL 70-99 Not Available [facility] (Lab) [address] [place], [address], 11/26/2022 20:45:05 11/27/19 23 11/26/2022 COMPR EHENS ISRAEL METAB OLIC PANEL BUN 12 mg/dL 8-19 Not Available [facility] (Lab) [address] [place], [address], 11/26/2022 20:45:05 11/27/19 23 11/26/2022 COMPR EHENS ISRAEL METAB OLIC PANEL creatinine 0.60 mg/dL 0.66-1 .25 low Not Available [facility] (Lab) [address] [place], [address], 11/26/2022 20:45:05 11/27/19 23 11/26/2022 COMPR EHENS ISRAEL METAB OLIC PANEL GFR >60 Refer ence Range : [place] GFR Healt hy Adult : >60 [...] calcu lator is avail able on the [facility] websi te: https ://ww w.kid eric.o rg/pr ofess ional s/kdo qi/gf r_cal culat or Not Available [facility] (Lab) [address] [place], [address], 11/26/2022 20:45:05 11/27/19 23 11/26/2022 COMPR EHENS ISRAEL METAB OLIC PANEL alkaline phosphatase 104 U/L 38-126 Not Available [facility] (Lab) [address] [place], [address], 11/26/2022 20:45:05 11/27/19 23 11/26/2022 COMPR EHENS ISRAEL METAB OLIC PANEL alanine aminotransfe rase 23 U/L 0-35 Not Available [facility] (Lab) [address] [place], [address], 11/26/2022 20:45:05 11/27/19 23 11/26/2022 COMPR EHENS ISRAEL METAB OLIC PANEL aspartate aminotransfe rase 25 U/L 15-37 Not Available [facility] (Lab) [address] [place], [address], 11/26/2022 20:45:05 11/27/19 23 11/26/2022 COMPR EHENS ISRAEL METAB OLIC PANEL bilirubin, total 0.50 mg/dL 0.20-1 .30 Not Available [facility] (Lab) [address] [place], [address], 11/26/2022 20:45:05 11/27/19 23 11/26/2022 COMPR EHENS ISRAEL METAB OLIC PANEL calcium 9.6 mg/dL 8.4-10 .2 Not Available [facility] (Lab) [address] [place], [address], 11/26/2022 20:45:05 11/27/19 23 11/26/2022 COMPR EHENS ISRAEL METAB OLIC PANEL total protein 7.6 g/dL 6.3-8. 2 Not Available [facility] (Lab) [address] [place], [address], 11/26/2022 20:45:05 11/27/19 23 11/26/2022 COMPR EHENS ISRAEL METAB OLIC PANEL albumin 4.5 g/dL 3.0-4. 4 high Not Available [facility] (Lab) [address] [place], [address], 11/26/2022 20:45:05 11/27/19 23 11/26/2022 COMPR EHENS ISRAEL METAB OLIC PANEL globulin 3.1 g/dL 2.6-4. 2 Not Available [facility] (Lab) [address] [place], [address], 11/26/2022 20:45:05 11/27/19 23 11/26/2022 COMPR EHENS ISRAEL METAB OLIC PANEL A/G ratio 1.5 ratio 1.0-2. 0 Not Available [facility] (Lab) [address] [place], [address], 11/26/2022 20:45:05 11/27/19 23 11/26/2022 LIPID PANEL cholesterol 207 mg/dL 140-19 9 high NIH ALBA NSUS RECOM MENDA TION FOR SHANTHI STERO L: ADULT CHILD LOW RISK: <200 <170 BORDE RLINE : <200- 239 ----- HIGH RISK: >240 >200 Not Available [facility] (Lab) [address] [place], [address], 11/26/2022 20:45:10 11/27/19 23 11/26/2022 LIPID PANEL triglyceride s 146 mg/dL 0-150 NIH ALBA NSUS REPOR T RECOM MENDA TION FOR TRIGL YCERI TRICE: ADULT CHILD LOW RISK: <150 ----- BODER LINE: 150-1 99 ----- HIGH RISK: >200 ----- Not Available [facility] (Lab) [address] [place], [address], 11/26/2022 20:45:10 11/27/19 23 11/26/2022 LIPID PANEL HDL cholesterol 90 mg/dL 40- Not Available [facility] (Lab) [address] [place], [address], 11/26/2022 20:45:10 11/27/19 23 11/26/2022 LIPID PANEL [...] NOT BE REPOR MARCO A. Not Available [facility] (Lab) [address] [place], [address], 11/26/2022 20:45:10 10/13/19 24 10/13/2023 COMPR EHENS ISRAEL METAB OLIC PANEL sodium 139 mmol/ L 137-14 5 Not Available [facility] (Lab) [address] [place], [address], 10/13/2023 21:11:49 10/13/19 24 10/13/2023 COMPR EHENS ISRAEL METAB OLIC PANEL potassium 4.3 mmol/ L 3.5-5. 1 Not Available [facility] (Lab) [address] [place], [address], 10/13/2023 21:11:49 10/13/19 24 10/13/2023 COMPR EHENS ISRAEL METAB OLIC PANEL chloride 101 mmol/ L 98-107 Not Available [facility] (Lab) [address] [place], [address], 10/13/2023 21:11:49 10/13/19 24 10/13/2023 COMPR EHENS ISRAEL METAB OLIC PANEL carbon dioxide 31 mmol/ L 22-30 high Not Available [facility] (Lab) [address] [place], [address], 10/13/2023 21:11:49 10/13/19 24 10/13/2023 COMPR EHENS ISRAEL METAB OLIC PANEL anion gap 11.3 mmol/ L 14-22 low Not Available [facility] (Lab) [address] [place], [address], 10/13/2023 21:11:49 10/13/19 24 10/13/2023 COMPR EHENS ISRAEL METAB OLIC PANEL glucose 95 mg/dL 70-99 Not Available [facility] (Lab) [address] [place], [address], 10/13/2023 21:11:49 10/13/19 24 10/13/2023 COMPR EHENS ISRAEL METAB OLIC PANEL BUN 15 mg/dL 8-19 Not Available [facility] (Lab) [address] [place], [address], 10/13/2023 21:11:49 10/13/1910/13/2023 COMPR EHENS ISRAEL METAB OLIC PANEL creatinine 0.68 mg/dL 0.66-1 .25 Not Available [facility] (Lab) [address] [place], [address], 10/13/2023 21:11:49 10/13/19 24 10/13/2023 COMPR EHENS ISRAEL METAB OLIC PANEL GFR >60 Refer ence Range : [place] GFR Healt hy Adult : >60 [...] or ethni c subgr oups, such as Hiswy nics. Outsi de the valid ated quentin [...] calcu lator is avail able on the [facility] websi te: https ://iban reyes.catherine cohen/melchor barreraal s/kdo qi/gf r_cal culat or Not Available [facility] (Lab) [address] [place], [address], 10/13/2023 21:11:49 10/13/19 24 10/13/2023 COMPR EHENS ISRAEL METAB OLIC PANEL alkaline phosphatase 105 U/L 38-126 Not Available [facility] (Lab) [address] [place], [address], 10/13/2023 21:11:49 10/13/19 24 10/13/2023 COMPR EHENS ISRAEL METAB OLIC PANEL alanine aminotransfe rase 21 U/L 0-35 Not Available [facility] (Lab) [address] [facility] [place], [address], 10/13/2023 21:11:49 10/13/19 24 10/13/2023 COMPR EHENS ISRAEL METAB OLIC PANEL aspartate aminotransfe rase 24 U/L 15-37 Not Available [facility] (Lab) [address] [place], [address], 10/13/2023 21:11:49 10/13/19 24 10/13/2023 COMPR EHENS ISRAEL METAB OLIC PANEL bilirubin, total 0.60 mg/dL 0.20-1 .30 Not Available [facility] (Lab) [address] [place], [address], 10/13/2023 21:11:49 10/13/19 24 10/13/2023 COMPR EHENS ISRAEL METAB OLIC PANEL calcium 10.4 mg/dL 8.4-10 .2 high Not Available [facility] (Lab) [address] [place], [address], 10/13/2023 21:11:49 10/13/19 24 10/13/2023 COMPR EHENS ISRAEL METAB OLIC PANEL total protein 6.9 g/dL 6.3-8. 2 Not Available [facility] (Lab) [address] [place], [address], 10/13/2023 21:11:49 10/13/19 24 10/13/2023 COMPR EHENS ISRAEL METAB OLIC PANEL albumin 4.1 g/dL 3.0-4. 4 Not Available [facility] (Lab) [address] [place], [address], 10/13/2023 21:11:49 10/13/19 24 10/13/2023 COMPR EHENS ISRAEL METAB OLIC PANEL globulin 2.8 g/dL 2.6-4. 2 Not Available [facility] (Lab) [address] [place], [address], 10/13/2023 21:11:49 10/13/19 24 10/13/2023 COMPR EHENS ISRAEL METAB OLIC PANEL A/G ratio 1.5 ratio 1.0-2. 0 Not Available [facility] (Lab) [address] [place], [address], 10/13/2023 21:11:49 10/13/19 24 10/13/2023 LIPID PANEL cholesterol 198 mg/dL 140-19 9 NIH ALBA NSUS RECOM MENDA TION FOR SHANTHI STERO L: ADULT CHILD LOW RISK: <200 <170 BORDE RLINE : <200- 239 ----- HIGH RISK: >240 >200 Not Available [facility] (Lab) [address] [place], [address], 10/13/2023 21:11:53 10/13/1910/13/2023 LIPID PANEL triglyceride s 104 mg/dL 0-150 NIH ALBA NSUS REPOR T RECOM MENDA TION FOR TRIGL YCERI TRICE: ADULT CHILD LOW RISK: <150 ----- BODER LINE: 150-1 99 ----- HIGH RISK: >200 ----- Not Available [facility] (Lab) [address] [place], [address], 10/13/2023 21:11:53 10/13/19 24 10/13/2023 LIPID PANEL HDL cholesterol 90 mg/dL 40- Not Available [facility] (Lab) [address] [place], [address], 10/13/2023 21:11:53 10/13/19 24 10/13/2023 LIPID PANEL [...] NOT BE REPOR MARCO A. Not Available [facility] (Lab) [address] [place], [address], 10/13/2023 21:11:53 10/13/19 24 10/13/2023 VITAM IN D 25-HY DROXY vd25oh 84.4 NG/mL 30-100 Vitam in D Statu s: Defic ient: <20 ng/mL Insuf ficie nt: 20-29 ng/mL Suffi cient : 30-10 0 ng/mL Not Available [facility] (Lab) [address] [place], [address], 10/13/2023 21:19:43 03/14/20 24 12/18/2023 MAMMO , scree rosa, digit al, bilat eral No observ ation record ed. BARCODE Not Available 2023 17:32:35 08/02/19 25 07/29/2023 colon oscop y scree rosa (PROC ) No observ ation record ed. BARCODE Not Available 2024 13:43:06 09/26/19 25 09/25/2024 CT, abdom en, w/ contr ast No observ ation record ed. [email or web address] Not Available 16:18:28 Result Notes None recorded. Problems Name Problem SNOMED Code Status Onset Date Resolution Date Notes Provider Name and Address Organization Details Recorded Time Carpal tunnel syndrome of left wrist 03168083331 9102 Active 2022 Mellissa Velasquez MD [address] [facility], [address], [place], [address] , [place] [facility] 3 10:46:09 Acute urinary tract infection 924385274 Active 2022 Roxane Hall LPN null, [place] - [facility] 3 11:56:58 Hyperlipi demia 07457373 Active 2023 Mellissa Velasquez MD [address], [address], [place], [address] , [facility] 4 09:29:11 Sinusitis 63503643 Active 2024 Kathi Zhang MA null, [place] - [facility] 5 13:03:10 Dysphagia 18068437 Active 2024 Mellissa Velasquez MD [address], [address], [place], [address] , [facility] 5 09:50:18 Abdominal pain 92054432 Active 2024 Roxane Hall LPN null, [place] - [facility] 5 10:53:45 Hiatal hernia 61303910 Active 2024 Mellissa Velasquez MD [address], [address], [place], [address] , [facility] - [facility] 5 09:11:52 Nodule of lung 421985946 Active [address] Mellissa Velasquez MD [address], [address], [place], [address] , [facility] 5 09:12:37 Edema of lower extremity 539771226 Active 2021 Not Available [facility] 3 04:53:02 Pain of left shoulder joint 77059195174 702552 Active 2021 Not Available [facility] 3 04:53:02 Pain of right shoulder joint 22525840316 494236 Active 2021 Not Available [facility] 3 04:53:02 Menopausa l and postmenop ausal disorders 742457397 Completed 201609/16/2017 Not Available [facility] 3 04:53:02 Edema 249634007 Completed 202103/25/2022 Not Available [facility] 3 04:53:03 Adult health examinati on Active 2020 Not Available [facility] 3 04:53:03 Knee pain Completed Not Available [facility] 3 04:53:03 Osteopeni a 556786323 Active 2017 Not Available [facility] 3 04:53:03 Depressiv e disorder 19723070 Active Not Available [facility] 3 04:53:03 Angioedem a 13435019 Active 2021 Not Available [facility] 3 04:53:03 Obesity 882141282 Active 2020 Not Available [facility] 3 04:53:03 Acute urinary tract infection 463422804 Completed 202102/10/2022 VALERIA Childers [facility] 3 11:56:58 Acute upper respirato ry infection 83212112 Completed Not Available [facility] 3 04:53:04 Essential hypertens ion 63289556 Active Not Available [facility] 3 04:53:04 Polyp of colon 92205376 Active Not Available [facility] 3 04:53:04 Urinary tract infectiou s disease 53632621 Completed Not Available [facility] 3 04:53:04 Contact dermatiti s due to plants, except food Completed Not Available [facility] 3 04:53:04 Psoriasis 8286460 Active Not Available [facility] 3 04:53:04 Problem Notes None recorded. Procedures Surgical History Date Name Laterality Status Provider Name and Address Organization Details Recorded Time 03/09/20 Medicare Wellness CPT Code, subsequent completed MARIFER Engel [facility] 03/09/2024 11:34:47 10/13/19 Medicare Wellness CPT Code, subsequent completed Gely Botello RN [facility] [employer] 10/13/2023 09:47:33 07/31/19 22 Date of Last Colonoscopy completed Not Available [facility] 07/08/2022 04:43:17 04/16/20 20 Most Recent Bone Density completed Not Available [facility] 07/08/2022 04:43:17 Imaging Results None recorded. Procedure Notes None recorded. Medical Equipment None Reported. Allergies Allergen ID Allergen Name Allergen Category Reaction Reaction Severity Criticality Documentation Date Start Date Code Code System Note Provider Name and Address Organization Details Recorded Time 86118 citalopra m medicatio n Not available Not available Not available 11/17/2023 2556 RxNorm hallu bentleyat ion Mellissa Velasquez MD [address] [place] [address], [address] [place] [address] [facility] 4 09:47:40 8361 furosemid e medicatio n angioedem a rash Not available Not available Not available 07/08/2022 4603 RxNorm Not Available [facility] 3 05:04:49 8363 codeine medicatio n respirato ry distress severe Not available 07/08/2022 2670 RxNorm Not Available [facility] 3 05:04:49 8364 Cipro medicatio n Not available Not available Not available 07/08/2022 54816 3 RxNorm sob Not Available [facility] 3 05:04:49 Medications Name Sig Start Date [...] administ ered by the provider 10/12 completed [facility]: 0003-049 4-20 Not Available Not Available Not Available amlodipin [...] administ ered by the provider 10/12 completed [facility]: 0409-427 -17 Not Available Not Available Not Available ProAir HFA 90 mcg/actua tion aerosol inhaler INL 2 PFS PO Q 4 H PRN active Not Available Not Available No t Available Fluzone High-Dose (PF) 180 mcg/0.5 mL intramusc ular syringe active Not Available Not Available Not Available Vitals Date Recorded Body height Body temperature Heart rate Oxygen saturation Oxygen saturation in Arterial blood by Pulse oximetry Body mass index (BMI) Body weight Systolic blood pressure Diastolic blood pressure Provider Name and Address Organization Details Last Updated DateTime 5 154.94 cm 97.6 [degF] 90 /min 98 % 98 % 38.9 kg/m2 66057.0 3 g 124 mm[Hg] 82 mm[Hg] Fadumo Cameron pete [employer] [facility] [employer] [facility] 5 09:14:54 Date Recorded Body height Body mass index (BMI) Body weight Heart rate Oxygen saturation Oxygen saturation in Arterial blood by Pulse oximetry Systolic blood pressure Diastolic blood pressure Provider Name and Address Organization Details Last Updated DateTime 4 154.94 cm 37.2 kg/m2 67899.7 g 83 /min 97 % 97 % 126 mm[Hg] 70 mm[Hg] Madelyn Mueller Manisha [facility] [employer] [facility] 4 09:10:47 Date Recorded Body height Body mass index (BMI) Body weight Body temperature Heart rate Oxygen saturation Oxygen saturation in Arterial blood by Pulse oximetry Systolic blood pressure Diastolic blood pressure Provider Name and Address Organization Details Last Updated DateTime 4 154.94 cm 39.1 kg/m2 22969.6 2 g 97.4 [degF] 91 /min 96 % 96 % 142 mm[Hg] 72 mm[Hg] Allison horta Manisha [facility] [employer] [facility] 4 09:39:54 Date Recorded Body height Body temperature Body mass index (BMI) Body weight Heart rate Oxygen saturation Oxygen saturation in Arterial blood by Pulse oximetry Systolic blood pressure Diastolic blood pressure Provider Name and Address Organization Details Last Updated DateTime 3 154.94 cm 97.2 [degF] 37.2 kg/m2 91024.7 g 70 /min 96 % 96 % 120 mm[Hg] 70 mm[Hg] Angeli Pérez CMA [facility] [employer] [facility] 3 10:24:19 Date Recorded Body height Body mass index (BMI) Body weight Body temperature Heart rate Oxygen saturation Oxygen saturation in Arterial blood by Pulse oximetry Systolic blood pressure Diastolic blood pressure Provider Name and Address Organization Details Last Updated DateTime 4 154.94 cm 38.9 kg/m2 91660.0 3 g 97.6 [degF] 73 /min 96 % 96 % 138 mm[Hg] 80 mm[Hg] Allison horta [facility] 4 11:34:29 Social History Question Answer Notes LastModified by Organizat ion Details LastModified Time Tobacco Smoking Status Former Smoker quit 1997 Not Available [facility] 07/08/2022 04:11:44 Do You Have An Advance Directive? Yes [id number] Information not available 07/08/2022 Are You Blind Or Do You Have Difficulty Seeing? No [email or web address] Information not available 10/13/2023 What Is Your Level Of Caffeine Consumption? Moderate [id number] Information not available 07/08/2022 How Much Tobacco Do You Chew? None [id number] Information not available 07/08/2022 Are You Deaf Or Do You Have Serious Difficulty Hearing? No [id number] Information not available 07/08/2022 What Type Of Diet Are You Following? REGULAR [id number] Information not available 07/08/2022 Which Illicit Or Recreational Drugs Have You Used? None [id number] Information not available 07/08/2022 Have There Been Any Changes To Your Family Or Social Situation? No [email or web address] Information not available 10/13/2023 What Is The Fluoride Status Of Your Home? Fluoridated MIGRATION.44549 [id number] Information not available 07/08/2022 When Did You Quit Smoking? 16+yearssinkaye reynoso MIGRATION.84710 [id number] Information not available 07/08/2022 Are There Any Guns Present In Your Home? No [id number] Information not available 07/08/2022 Where Do You Live? Apartment [email or web address] Information not available 10/13/2023 Guns Present In The Home? No [email or web address] Information not available 10/13/2023 Are You Able To Care For Yourself? Yes [email or web address] Information not available 10/13/2023 Are You Blind Or Do Yo Have Difficulty Seeing? No [email or web address] Information not available 10/13/2023 Are You Deaf Or Do You Have Serious Difficulty Hearing? No [email or web address] Information not available 10/13/2023 Live Alone Of With Others? With Others [email or web address] Information not available 10/13/2023 Do You Have A Medical Power Of Scout Executive? Yes [email or web address] Information not available 10/13/2023 What Was The Date Of Your Most Recent Tobacco Screening? 10/13/2023 [email or web address] Information not available 10/13/2023 Do You Have Any Pets? Yes [email or web address] Information not available 10/13/2023 What Is Your Relationship Status? Other Room Mate [email or web address] Information not available 10/13/2023 Do You Use Your Seat Belt Or Car Seat Routinely? Yes [id number] Information not available 07/08/2022 Do You Have Smoke And Carbon Monoxide Detectors In Your Home? Yes [id number] Information not available 07/08/2022 At What Age Did You Start Smoking Tobacco? 19 MIGRATION.72223 25617 Information not available 07/08/2022 Do You Use Sunscreen Routinely? No MIGRATION.19749 96552 Information not available 07/08/2022 How Many Years Have You Smoked Tobacco? 33 MIGRATION.23517 68350 Information not available 07/08/2022 Do You Have Difficulty Walking Or Climbing Stairs? No MIGRATION.15880 48817 Information not available 07/08/2022 Sex: Female Functional Status Question Answer Note LastModified by Organizat ion Details LastModified Time What is your level of alcohol consumption? Occasional 1 glass of wine [email or web address] Information not available 10/13/2023 Do you or have you ever used smokeless tobacco? Never used smokeless tobacco MIGRATION.13712 04091 Information not available 07/08/2022 Do you have transportation difficulties? No MIGRATION.58678 00702 Information not available 07/08/2022 Are you able to walk? YESWOREST MIGRATION.39494 47093 Information not available 07/08/2022 Do you have difficulty doing errands alone? No MIGRATION.40099 26143 Information not available 07/08/2022 Are you able to care for yourself? 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 No MIGRATION.48728 52132 Information not available 07/08/2022 Do you or have you ever used e-cigarettes or vape? Never used electronic cigarettes MIGRATION.47279 82046 Information not available 07/08/2022 What is your exercise level? None MIGRATION.04759 42756 Information not available 07/08/2022 Mental Status Question Answer Note LastModified by Organizat ion Details LastModified Time Do you feel stressed (tense, restless, nervous, or anxious, or unable to sleep at night)? [id number] MIGRATION.[id number] 26 Information not available 07/08/2022 Do you have difficulty concentrating, remembering or making decisions? No MIGRATION.[id number] 26 Information not available 07/08/2022 Family History Relationship Description Onset Age of this Age Resolved Age Notes LastModified by Organization Details LastModified Time Father Family history of malignant neoplasm [email or web address] Not available 2023 11:00:07 Mother Hypertensive disorder [id number] Not available 07/08/2022 04:43:23 Mother Heart disease MIGRATION.991 [id number] Not available 07/08/2022 04:43:23 Medical History Condition Response HAVE YOU BEEN HOSPITALIZED OR SEEN IN [facility] IN THE PAST YEAR ? Y OSTEOPOROSIS Y ARTHRITIS Y SKIN PROBLEMS Y HYPERTENSION Y Gynecological History Statement/Question Response Abnormal Pap N Date of Last Pap Date of Last Mammogram 05/14/2021 Date of Last Colonoscopy 07/30/2021 Most Recent Bone Density 04/16/2020 Obstetrics History GPAL:G 0 P 0 0 0 0 Immunizations Vaccine Type Date Status Note Provider Nam e and Address Organization Details Recorded Time SARS-COV-2 (COVID-19) vaccine, UNSPECIFIED 1 completed Not Available [facility] 07/08/2022 05:04:15 SARS-COV-2 (COVID-19) vaccine, UNSPECIFIED 1 completed Not Available [facility] 07/08/2022 05:04:15 SARS-COV-2 (COVID-19) vaccine, UNSPECIFIED 1 completed Not Available [facility] 07/08/2022 05:04:15 Influenza, high-dose, quadrivalent, PF 9 completed Not Available [facility] 07/08/2022 05:04:15 Influenza, high-dose, quadrivalent, PF 1 completed Not Available [facility] 07/08/2022 05:04:15 Influenza, high-dose, quadrivalent, PF 0 completed Not Available [facility] 07/08/2022 05:04:15 pneumococcal polysaccharide PPV23 9 completed Not Available [facility] 07/08/2022 05:04:15 Pneumococcal conjugate PCV 13 7 completed Not Available [facility] 07/08/2022 05:04:16 Influenza, high-dose, trivalent, PF 7 completed Not Available [facility] 07/08/2022 05:04:16 Influenza, split virus, trivalent, PF 4 completed Not Available [facility] 07/08/2022 05:04:16 Influenza, split virus, quadrivalent, PF 6 completed Not Available [facility] 07/08/2022 05:04:16 Influenza, high-dose, quadrivalent, PF 3 completed MARIFER Engel, [place] - [facility] 02/26/2023 14:18:21 Past Encounters Encounter ID Performer Location Encounter Start Date Encounter Closed Date Diagnosis/Indication Diagnosis SNOMED-CT Code Diagnosis ICD10 Code Diagnosis Note [id number] Mellissa Velasquez MD [facility] [address] [facility] [address] [place] [address] 10/16/2020 00:00:00 10/16/2020 16:26:35 [id number] Mellissa Velasquez MD [facility] [address] [place] [address] 03/06/2021 00:00:00 03/06/2021 14:11:19 [id number] Mellissa Velasquez MD [facility] [address] [facility] [place] [address] 07/21/2021 00:00:00 07/21/2021 12:08:34 [id number] Michel Collins MD [facility] [address] [place] [address] 09/10/2021 00:00:00 09/10/2021 15:12:19 [id number] MD JACOBO [facility] [address] [facility] [address] [place] [address] 11/11/2021 00:00:00 11/11/2021 17:21:05 [id number] Mellissa Velasquez MD S_[facility] Internal Med [place] [address] [facility] [place] [address] 11/19/2021 00:00:00 11/19/2021 13:18:56 [id number] Mellissa Velasquez MD [facility] [place] [address] [address] [facility] [place] [address] 02/11/2022 00:00:00 02/11/2022 11:14:29 [id number] MD JACOBO [facility]cher[facility] Internal [place] [address] [facility] [place] [address] 02/23/2022 00:00:00 02/23/2022 13:03:45 [id number] Mellissa Velasquez MD [facility] [place] [address] [facility] [place] [address] 03/25/2022 00:00:00 03/25/2022 10:55:17 [id number] Mellissa Velasquez MD [facility] [address] [place] [address] 07/23/2022 10:17:58 07/23/2022 10:46:54 Essential hypertension 81827574 I10 under control Depressive disorder 3548 9007 F32.9 no meds needed Obesity 486777771 E66.9 advised to watch diet Osteopenia 871243893 M85 .80 on ca with vit d, dexa 07/02 Psoriasis 6243024 L40.9 clobetasol helps Angioedema 22545290 T78. 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 [address] 11/25/2022 10:15:07 11/25/2022 10:53:19 Essential hypertension 64512984 I10 under control Depressive disorder 3548 9007 F32.9 meds needed Obesity 462899261 E66.9 advised to watch diet Osteopenia 520604671 M85 .80 on ca with vit d, dexa 07/02 Psoriasis 8651083 L40.9 clobetasol helps Angioedema 95900681 T78. 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 [address] 10/13/2023 09:05:28 10/13/2023 09:57:35 Essential hypertension 51453330 I10 under control Depressive disorder 3548 9007 F32.9 start meds Obesity 183245510 E66.9 advised to watch diet Osteopenia 207831223 M85 .80 on ca with vit d, dexa 07/02 Psoriasis 0340351 L40.9 clobetasol prn helps Angioedema 25577981 T78. 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 [address] 11/17/2023 09:19:42 11/17/2023 09:53:29 Depressive disorder 03434531 F32.9 start sertraline [id number] Mellissa Velasquez MD [facility] Internal Med [address] [place] [address] 03/09/2024 10:59:20 03/09/2024 12:10:05 Essential hypertension 92163969 I10 under control Depressive disorder 3548 9007 F32.9 much better Obesity 087688364 E66.9 advised to watch diet Osteopenia 105457826 M85 .80 on ca with vit d, dexa 07/02 Psoriasis 5191287 L40.9 clobetasol prn helps Angioedema 86164303 T78. 3XXA due to furosemide Adult heal th examination 827971564 Z00.00 Colonoscop y done 07/29, POLYPS, done in [place], next in 3 yrsMammogr am- 05/31 - ORDEREDDex 3Pre vnar 13, 02/2018PPv 08/2018FLU - 01/27/2024 @ workRSV- 01/27/2024 @ workCOVID- 06/21/20, 07/12/20, 03/05/21. 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 [address] 08/01/2024 09:01:03 08/01/2024 14:19:45 Essential hypertension 35131637 I10 under control Depressive disorder 3548 9007 F32.9 much better Obesity 118263851 E66.9 advised to watch Osteopenia 284355509 M85 .80 on ca with vit d, dexa due , wants to wait Psoriasis 2701241 L40.9 clobetasol prn helps Angioedema 69257872 T78. 3XXA due to furosemide Adult heal th examination 901378351 Z00.00 Colonoscop y done 07/29, POLYPS, done in [place], next in 3 yrsMammogr am- 12/31Dexa- 3Pre vnar 13, 02/2018PPv 23 08/2018FLU - 01/27/2024 @ workRSV- 01/27/2024 @ workCOVID- 06/21/20, 07/12/20, 03/05/21. 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 8253162024 70909 G56.02 symptoms are off and on, Hyperlipidemia 48221128 E78.5 stable Dysphagia 48108185 R13.1 0 Screening for malignant neoplasm of colon 301936962 Z12.11 Health Concerns Section Related Observation LastModified by Organization Detai ls LastModified Time None Recorded Concern Status LastModified by Organization Details LastModified Time None Recorded Advance Directives Directive Y: Payers Encounter Date Sequence Insurance Name Policy Number Policy Leggett Covered Member ID Leggett Member ID Guarantor Name 11/25/2022 1 [facility] - MEDICARE SOLUTIONS - MEDICARE COMPLETE (MEDICARE REPLACEMENT HMO) [id number] Tequila Kelly [id number] Tequila Kelly 10/13/2023 1 [employer] - MEDICARE SOLUTIONS - MEDICARE COMPLETE (MEDICARE REPLACEMENT HMO) [id number] eTquila Kelly [id number] Tequila Kelly 11/17/2023 1 [employer] - MEDICARE SOLUTIONS - MEDICARE COMPLETE (MEDICARE REPLACEMENT HMO) [id number] Tequila Kelly [id number] Tequila Kelly 03/09/2024 1 [facility] MEDICARE SOLUTIONS - MEDICARE COMPLETE (MEDICARE REPLACEMENT HMO) [id number] Tequila Kelly [id number] Tequila Kelly 08/01/2024 1 [facility] - MEDICARE SOLUTIONS - MEDICARE COMPLETE (MEDICARE REPLACEMENT HMO) [id number] Tequila Kelly [id number] Tequila Kelly Notes Date Note Type Note Provider Name and Address Organization Details Recorded Time 3 text/html She is here for 4 month follow up, taking meds, compliant, no side effectsHTN- on meds, under controlMeds- Losartan 100 mg/HCTZ 12.5 mg daily, Amlodipine 5 mg dailyDepression- was on duloxetine, SYMPTOMS ARE GETTING WORSE, wants meds againObesity- WATCHING DIETOsteopenia- dexa 04/28 , on ca /vit d , dexa 07/02Left leg h/o Kelly cyst, seen dr Pablo. no symptomsPsoriasis-Rash on the legs, Uses Clobetasol ointment as neededshe was c/o left axillary swelling, CT scan 11/27 showed no mass or lymphadenopathyLeft shoulder pain due to rotator cuff and arthritis, severe , seen on the Ct scan, seen Dr Collins, had steroid shot, better CTS- seenHiatal hernia- seen on CT, no symptoms , had EGD in the past, no more needed as has no symptomsEdema- under control since amlodipine was changed to 5 mgAngioedema due to Furosemide Mellissa Velasquez MD [address] [place] [address], [facility] [address], [place], [address], [place] [employer] 11/25/2022 10:51:41 4 text/html She is here for 4 month follow up, taking meds, compliant, no side effects HTN- on meds, under controlMeds- Losartan 100 mg/HCTZ 12.5 mg daily, Amlodipine 5 mg dailyDepression- was on duloxetine did not help much. WORSE Now. Would consider a trying a different medication, some anxietysleep not good Hyperlipidemia- mild, advised to watch dietObesity- has not lostOsteopenia- dexa 04/28 , on ca /vit d , dexa 07/02Left leg h/o Kelly cyst, seen dr Pablo. no symptomsPsoriasis-Rash on the legs, Uses Clobetasol ointment as neededshe was c/o left axillary swelling, CT scan 11/27 showed no mass or lymphadenopathy , could be due toLeft shoulder pain due to rotator cuff and arthritis, seen on the Ct scan, seen Dr Collins, had steroid shot, mild symptoms CTS- seen orthoHiatal hernia- seen on CT, no symptoms , had EGD in the past, no more needed as has no symptomsEdema- under control since amlodipine was changed to 5 mgAngioedema due to Furosemide Mellissa Velasquez MD [address] [facility], [place] [address], [place], [address], [employer] [facility] 10/13/2023 12:00:12 4 text/html Pt is here today for a 1 month follow up.Last month she was started on Citalopram 20mg was told to take 1/2 a tab and she only took it for 4 days, caused feeling of gloom and doom, hallucinations.still has anxiety and depressionsleep is fair Mellissa Velasquez MD [address] [facility], [place] [address], [place], [address], [employer] [facility] 11/17/2023 09:53:16 4 text/html She is here for 4 month follow up, taking meds, compliant, no side effects HTN- on meds, under controlMeds- Losartan 100 mg/HCTZ 12.5 mg daily, Amlodipine 5 mg dailyDepression- was on duloxetine did not help much. on sertraline and feeling better.Meds- sertraline 50 mg qd Hyperlipidemia- mild, advised to watch dietObesity- lost 1 lbsOsteopenia- dexa 04/28 , on ca /vit d , dexa 07/02Left leg h/o Kelly cyst, seen dr Pablo. no symptomsPsoriasis-Rash on the legs, Uses Clobetasol ointment as neededH/o left axillary swelling, CT scan 11/27 showed no mass or lymphadenopathy ,Left shoulder pain due to rotator cuff and arthritis, seen on the Ct scan, seen Dr Collins, had steroid shot, mild symptoms CTS- seen orthoHiatal hernia- seen on CT, no symptoms , had EGD in the past, no more needed as has no symptomsEdema- under control since amlodipine was changed to 5 mgAngioedema due to Furosemide Mellissa Velasquez MD [address], [place], [address], [employer] 03/09/2024 11:59:59 5 text/html She is here for 4 month follow up, taking meds, compliant, no side effects. c/o dysphagia to meats , apples and salads, and some times has to coug upPT IS FASTING HTN- on meds, under controlMeds- Losartan 100 mg/HCTZ 12.5 mg daily, Amlodipine 5 mg dailyDepression- was on duloxetine and citalopram, did not help much. on sertraline and feeling better.Meds- sertraline 50 mg qd Hyperlipidemia- mild, advised to watch dietObesity- advised to lose, has lost someOsteopenia- dexa 04/28 , on ca /vit d , dexa 07/02Left leg h/o Kelly cyst, seen dr Pablo. no symptomsPsoriasis-Rash on the legs, Uses Clobetasol ointment as neededH/o left axillary swelling, CT scan 11/27 showed no mass or lymphadenopathy ,CTS- seen orthoHiatal hernia- seen on CT, no symptoms , had EGD in the past, no more needed as has no symptomsEdema- under control since amlodipine was changed to 5 mgAngioedema due to Furosemide Mellissa Velasquez MD [address], [address], [place], [address], [employer] 08/01/2024 09:54:07 OBGyn Episode No OBEpisode recorded.
--- OUTSIDE RECORDS SUMMARY | 2024-10-16 00:34 | XMS_ITS | Continuity of Care Document ---
Author Organization [facility] Address [address] [place] [address] [address] [place] [address] Phone Care Team Providers Care Staff Writer Name Role Phone Hewitt OD, Gentry Unavailable Unavailable Procedures Procedure Date Eye Exam & Treatment Refraction Eye Exam & Treatment Refraction Advance Directives Directive Yes / No Effective Date File Name No Information Encounters Encounter Description Practice Location Reason(s) For Visit Diagnoses Date Provider Providers Copied on Encounter [facility], [address] [place] [address] [address], [place], [place], [id number], tel:[phone] [facility] No Information 5200 9 Hewitt OD Gentry. [address], [place], [address], [place]. tel:[phone] [facility], [address] [place] [address] [address], [place], [place], [id number], tel:[phone] [facility] No Information 1-200 8 Hewitt OD Gentry. [address] , [address], [place], [address], [place]. tel:[phone] Family History Family Member Type Diagnosis Age [...]
[2024-10-16 11:18] VITALS: BP 158/76; PULSE 80; RESP 16; TEMP 36.1; O2SAT 97; BMI 37.7
[2024-10-16] MEDS: SIMETHICONE ORAL SUSPENSION 20 MG/0.3 ML 30 ML BOTTLE 1.8 ML PO (11:33)
[2024-10-16] MEDS: LACTATED RINGERS 1,000 ML 150 ML IV CONT (11:42)
--- NOTE | 2024-10-16 12:10 | P.PNAN_ITS ---
Anes - Initial Pre Proc Eval Procedure: Operation Date: 10/16/24 13:00 Proposed Procedures p Esophagogastroduodenoscopy - Jose Perez MD Date/Time: 10/16/24 12:10 Surgeon: Jose Perez MD Pre Op Diagnosis: Dysphagia, unspecified Patient Data Age: 78 Gender: F Height: 1.55 m Weight: 90.5 kg Last Vital Signs Temp 36.1 C L 10/16/24 11:18 Pulse 80 10/16/24 11:18 Resp 16 10/16/24 11:18 BP 158/76 H 10/16/24 11:18 Pulse Ox 97 10/16/24 11:18 O2 Del Method Room Air 10/16/24 11:18 Allergies Allergy/AdvReac Type Severity Reaction Status Date / Time codeine Allergy Severe DIFFICULTY Verified 10/16/24 11:24 BREATHING ciprofloxacin Allergy Intermediate Itching Verified 10/16/24 11:24 Home Medications ?Medication ?Instructions ?Recorded ?Confirmed ?Type amlodipine 5 mg tablet 5 mg PO DAILY 04/01/20 10/16/24 History cholecalciferol (vitamin D3) 125 125 mcg PO DAILY 04/01/20 10/16/24 History mcg (5,000 unit) tablet (Vitamin D3) cyanocobalamin (vitamin B-12) 2,000 mcg PO DAILY 04/01/20 10/16/24 History 2,000 mcg tablet,extended release (Vitamin B-12 ER) losartan 100 1 tablet PO DAILY 04/01/20 10/16/24 History mg-hydrochlorothiazide 12.5 mg tablet duloxetine 20 mg capsule,delayed 20 mg PO DAILY 12/08/22 10/04/24 History release fluticasone propionate 50 2 spray intranasal DAILY #16 grams 12/08/22 10/04/24 Rx mcg/actuation nasal spray,suspension (Flonase Allergy Relief) sertraline 50 mg tablet 50 mg PO HS 10/04/24 10/16/24 History Patient hx anesthesia problems: none Family hx anesthesia problems: none Results Review: All pre-operative results and documents have been reviewed as part of the pre- operative evaluation. [facility] Past Medical History Medical History Decreased hearing of left ear Diverticula, colon Obesity Adenomatous colon polyp RONDA (obstructive sleep apnea) cannot tolerate CPAP GERD (gastroesophageal reflux disease) Hypertension Surgical History Surgical History H/O unilateral oophorectomy Hx laparoscopic cholecystectomy History of esophagogastroduodenoscopy (EGD) H/O colonoscopy Family History Family History Father Hypertension Cancer Mother Depression Cerebrovascular accident Hypertension Heart disease Anxiety Social History Social History Social History: Caffeine- coffee daily Smoking status: Never smoker Alcohol intake: current Drinks per week: 5 Alcohol use details: WINE Substance use: never Substance use type: does not use Lack of Transportation: No Lack of Food: Never True Current Housing: I Have Housing Concerned About Future Housing: No Difficulty Paying Gas/Electric Bills: No Difficulty Paying for Meds: No Currently Unemployed: No Education: Bachelor's Degree Difficulty w/ Childcare or Family Care: No Living arrangements: with family Spiritual care concerns: No Anes - Eval Final PreProcedure Day of Procedure 10/16/24 12:10 Patient weight: obese Heart: regular rate and rhythm Lungs: decreased breath sounds Airway: Mallampati scale class II Neurological: alert and oriented Last oral intake: >/= 8 hours ASA classification: III Emergent: no Anesthetic plan: proceed Anesthesia type and monitoring: general GIVS and standard monitoring Results Review: All pre-operative results and documents have been reviewed as part of the pre- operative evaluation. Informed Consent: The patient's anesthetic plan and its attendant risks and benefits were discussed with the patient/family/POA. Questions were solicited and answers provided to the satisfaction of the patient/family/POA.
--- NOTE | 2024-10-16 12:29 | PM.IMHP ---
H&P: HPI History of Present Illness Date/Time: 10/16/24 12:29 Chief Complaint: Dysphagia Narrative: the patient has several years of intermittent dysphagia, exclusively to solid food. A few weeks ago she had near food impaction episode, which past after a few hours. Her last EGD was 11 years ago. She was told she has hiatal hernia. She denies heartburn, nausea vomiting. Review of Systems Review of Systems: All systems reviewed & are unremarkable except as noted in HPI and below PMFSH Past Medical History Medical History Decreased hearing of left ear Diverticula, colon Obesity Adenomatous colon polyp RONDA (obstructive sleep apnea) cannot tolerate CPAP GERD (gastroesophageal reflux disease) Hypertension Surgical History Surgical History H/O unilateral oophorectomy Hx laparoscopic cholecystectomy History of esophagogastroduodenoscopy (EGD) H/O colonoscopy Family History Family History Father Hypertension Cancer Mother Depression Cerebrovascular accident Hypertension Heart disease Anxiety Social History Social History Social History: Caffeine- coffee daily Smoking status: Never smoker Alcohol intake: current Drinks per week: 5 Alcohol use details: WINE Substance use: never Substance use type: does not use Lack of Transportation: No Lack of Food: Never True Current Housing: I Have Housing Concerned About Future Housing: No Difficulty Paying Gas/Electric Bills: No Difficulty Paying for Meds: No Currently Unemployed: No Education: Bachelor's Degree Difficulty w/ Childcare or Family Care: No Living arrangements: with family Spiritual care concerns: No Meds Home Medications and Allergies Home Medications ?Medication ?Instructions ?Recorded ?Confirmed ?Type amlodipine 5 mg tablet 5 mg PO DAILY 04/01/20 10/16/24 History cholecalciferol (vitamin D3) 125 125 mcg PO DAILY 04/01/20 10/16/24 History mcg (5,000 unit) tablet (Vitamin D3) cyanocobalamin (vitamin B-12) 2,000 mcg PO DAILY 04/01/20 10/16/24 History 2,000 mcg tablet,extended release (Vitamin B-12 ER) losartan 100 1 tablet PO DAILY 04/01/20 10/16/24 History mg-hydrochlorothiazide 12.5 mg tablet duloxetine 20 mg capsule,delayed 20 mg PO DAILY 12/08/22 10/04/24 History release fluticasone propionate 50 2 spray intranasal DAILY #16 grams 12/08/22 10/04/24 Rx mcg/actuation nasal spray,suspension (Flonase Allergy Relief) sertraline 50 mg tablet 50 mg PO HS 10/04/24 10/16/24 History Allergies Allergy/AdvReac Type Severity Reaction Status Date / Time codeine Allergy Severe DIFFICULTY Verified 10/16/24 11:24 BREATHING ciprofloxacin Allergy Intermediate Itching Verified 10/16/24 11:24 Vital Signs Vital Signs - 24 hr 10/16/24 11:18 Temperature 96.9 F L Pulse Rate 80 Respiratory Rate 16 Blood Pressure 158/76 H Pulse Oximetry 97 Oxygen Delivery Room Air Exam Const: General: cooperative and healthy appearing Resp: Effort & Inspection: normal respiratory effort and able to speak in complete sentences Auscultation: clear to auscultation bilaterally Cardio: Rate: regular rate Rhythm: regular rhythm GI: Inspection: normal to inspection GI Palp: No No hepatosplenomegaly present Auscultation: normal bowel sounds Rectal Exam: deferred Skin: General skin exam: normal color Psych: Appearance: grossly normal Mental Status: mental status grossly normal Assessment and Plan Assessment and plan (1) Dysphagia: Code(s): R13.10 - Dysphagia, unspecified Status: Acute Assessment and Plan: The patient is deemed a good candidate for the procedure. Consent signed. Will proceed.
[2024-10-16 12:53] VITALS: BP 166/79; PULSE 84; RESP 18; O2SAT 96
[2024-10-16 13:03] VITALS: BP 169/83; PULSE 83; RESP 18; O2SAT 97
[2024-10-16 13:33] VITALS: BP 169/82; PULSE 82; RESP 20; O2SAT 96
== END 2024-10-16 13:33 | disposition home or self-care (01) ==
PROVIDERS: PCP Internal Medicine; Referring Provider Internal Medicine; Visit Provider Internal Medicine Gastroenterology
PROC: 0DJ08ZZ Inspection of Upper Intestinal Tract, Via Natural or Artificial Opening Endoscopic (ICD-10-PCS; CPT 43450; principal; 2024-10-16 13:00)
DX: K22.2 Esophageal obstruction (principal); K44.9 Diaphragmatic hernia without obstruction or gangrene; K25.9 Gastric ulcer, unspecified as acute or chronic, without hemorrhage or perforation; E66.9 Obesity, unspecified; Z68.37 Body mass index [BMI] 37.0-37.9, adult
CPT/HCPCS: 43450; 43235; J2003; J2704; J7120

== ENCOUNTER 2024-11-30 09:35 | Outpatient (CLI) | payer MEDICARE, SELFPAY ==
--- NOTE | ~2024-11-30 | DEXA_ITS ---
Bone Density Report Name: JORGE MARSHALL Age: 79 Sex: Female Ethnicity: White Date of : 1945 Indication: osteopenia; height loss; prior fracture; Referring Provider: MAURICE, MELLISSA Vizcarra Study: Bone densitometry was performed. Exam Date: November 30, 2024 Accession number: [id number] Bone Density: Region BMD T-score Z-score Classification AP Spine(L1-L4) 0.872 -1.6 0.9 Osteopenia Femoral Neck (Left) 0.634 -1.9 0.2 Osteopenia Total Hip (Left) 0.829 -0.9 1.0 Normal Femoral Neck (Right) 0.665 -1.7 0.5 Osteopenia Total Hip (Right) 0.876 -0.5 1.4 Normal Total Hip Mean 0.853 -0.7 1.2 Normal World Health Organization criteria for BMD impression classify patients as: Normal (T-score at or above -1.0), Osteopenia (T-score between -1.0 and -2.5), or Osteoporosis (T-score at or below -2.5). 10-year Fracture Risk(1): Major Osteoporotic Fracture 18% Hip Fracture 4.1% Reported Risk Factors: [place] (), Neck BMD=0.634, BMI=39.6, previous fracture (1) FRAX(R) Version 3.08. Fracture probability calculated for an untreated patient. Fracture probability may be lower if the patient has received treatment. Previous Exams: -- Region Exam Age BMD T-score BMD Change BMD Change Date g/cm2 vs Baseline vs Previous -- AP Spine (L1-L4) 11/30/2024 79 0.872 -1.6 5.0%* -1.1% 06/29/2022 76 0.882 -1.5 6.2%* 6.2%* 04/16/2020 74 0.830 -2.0 Total Hip(Left) 11/30/2024 79 0.829 -0.9 -3.6%* -1.4% 06/29/2022 76 0.841 -0.8 -2.2% -2.2% 04/16/2020 74 0.860 -0.7 Total Hip(Right) 11/30/2024 79 0.876 -0.5 -0.8% 1.0% 06/29/2022 76 0.868 -0.6 -1.8% -1.8% 04/16/2020 74 0.883 -0.5 -- *Denotes significance at 95% confidence level, LSC for AP Spine = 0.022 g/cm2, LSC for Total Hip = 0.027 g/cm2 Clinical Information Provided by Patient: Has had a low trauma fracture Has used the following medications: Fosamax (i.e. alendronate), Reclast (i.e. zoledronate), Vitamin D Patient maximum height was 62 Menopause Age: 44 No regular weight bearing exercise Does not regularly consume dairy products Drinks caffeinated beverages Onset of menses at age 13 Number of children 3 Impression: The patient has low bone mass, based on the Left Femoral Neck T-score. The patient has an estimated ten-year risk of hip fracture of 4.1% and an estimated ten-year risk of major fracture of 18%, based on the WHO FRAX algorithm. The patient has risk factors, including: previous fracture. No significant bone loss was observed. Discussion: BONE DENSITY IS LOW AT ONE OR MORE SKELETAL SITES. THE PATIENT'S BMD AND CLINICAL RISK FACTORS CONTRIBUTE TO THIS PATIENT'S INCREASED RISK OF FRACTURE. This patient's lowest T-score is low at one or more skeletal sites. It meets the World Health Organization's (WHO) criteria for ?low bone mass? (T-score between -1.0 and -2.5). The patient's 10-year risk of hip fracture as calculated by FRAX exceeds the threshold where pharmacological therapy is recommended by the National Osteoporosis Foundation (NOF). However, all treatment decisions require clinical judgment and consideration of individual patient factors, including patient preferences, comorbidities, previous drug use, risk factors not captured in the FRAX model (e.g., frailty, falls, vitamin D deficiency, increased bone turnover, interval significant decline in bone density) and possible under or overestimation of fracture risk by FRAX. The patient should follow a healthful lifestyle (good nutrition with adequate calcium and vitamin D, and appropriate weight-bearing exercise). Follow-Up: Consider a repeat BMD and Vertebral Fracture Assessment (VFA) exam in 2 years or sooner if medically necessary, to reassess this patient's status. Reported by: SIMI on 11/30/2024 9:54:00 AM. Reviewed, dictated and finalized at location A.
== END 2024-11-30 09:36 | disposition home or self-care (01) ==
LOC: MICIMG 09:37
PROVIDERS: PCP Internal Medicine; Visit Provider Internal Medicine
DX: M85.89 Other specified disorders of bone density and structure, multiple sites (principal); Z78.0 Asymptomatic menopausal state; Z12.31 Encounter for screening mammogram for malignant neoplasm of breast
CPT/HCPCS: 77080